=== PATIENT | female | born 1930 | race Hispanic/Latino ===

== ENCOUNTER 2018-02-28 05:01 | Inpatient (IN) | payer MEDICARE ==
[~2018-02-28] VITALS: Ht 160 cm; Wt 81.7 kg
--- OUTSIDE RECORDS SUMMARY | 2018-02-28 05:03 | XMS REPORT ---
Author Author [facility] Address Unknown Phone Unavailable Care Team Providers Care [employer] Name Role Phone TYRA NEAL Unavailable Unavailable RAKAN HOROWITZ Unavailable Unavailable Problems This patient has no known problems. Allergies, Adverse Reactions, Alerts This patient has no known allergies or adverse reactions. Medications This patient has no known medications. Results Test Description Test Time Test Comments Text Results Atomic Results Result Comments BONE and/or JOINT WHOLE BODY [place] [address] Patient Name: JOSE F STRONG MR #: [id number] : 1930 Age/Sex: 87/F Req #: [id number] [facility] Physician: Ordered by: TYRA NEAL MD Report #: [id number] Location: [place] Room/Bed: Procedure: [id number] NM/BONE and/or JOINT WHOLE BODY Exam Date: 10/23/17 Exam Time: 1130 REPORT STATUS: Signed Bone Scan, delayed phase INDICATION: 87 F with intermittent mid back pain. Recent Diagnosis of renal cell carcinoma. She has sustained multiple falls. 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 COMPARISON: CT abdomen and pelvis 10/01/2017; MRI spine 09/11/2017 REPORT: Following intravenous administration of 20 mCi of Tc-99m MDP, dynamic flow and immediate blood pool images of the lower thoracic and lumbar spine and 3-hour delayed total body images in the anterior and posterior projections and selected spot images were obtained. Dynamic flow and immediate blood pool images of the lower thoracic and lumbar spine are unremarkable. Right knee and left hip prostheses are noted and show no adjacent tracer accumulation of concern. Small foci of increased tracer activity are seen in the left glenoid, L3 and the inferior aspect of the right SI joint. Very mildly increased tracer is seen at T11. Mildly increased tracer is seen bilaterally in L5/S1 in a pattern typical of degenerative change. Otherwise, distribution of tracer activity is unremarkable throughout the skeletal system. No abnormal accumulation of tracer is seen in the soft tissues or urinary tract. IMPRESSION: 1. Osteoblastic lesions in the left glenoid, L3 and right SI joint inferiorly are nonspecific in appearance and may represent metastases versus degenerative changes. The lesion in the left glenoid is most worrisome for bone metastasis and correlative imaging is warranted. The lesions in L3 and the right SI joint don't have definite CT correlates. 2. Mild osteoblastic process in T11 consistent with known chronic compression fracture. Degenerative change is noted in L5/S1 bilaterally and corresponds to degenerative change seen on CT 10/01/2017. Signed by: Dr. Leeanne Lang M.D. on 10/23/2017 7:05 PM Dictated By: LEEANNE LANG MD 04 Transcribed By: WES on 10/23/171904 COPY TO: TYRA NEAL MD CT ABDOMEN W [place] [address] Patient Name: JOSE F STRONG MR #: [id number] : 1930 Age/Sex: 87/F Req #: [id number] Adm Physician: Ordered by: RAKAN HOROWITZ MD Report #: [id number] Location: CT Room/Bed: Procedure: [id number] CT/CT ABDOMEN W Exam Date: 10/01/17 Exam Time: 1730 REPORT STATUS: Signed EXAM: CT Abdomen and Pelvis WITH contrast INDICATION: EXAM: CT Abdomen WITH contrast INDICATION: Left kidney mass partially visualized on the recent MRI of lumbar spine dated 09/11/17. COMPARISON: None. TECHNIQUE: Abdomen and pelvis were scanned utilizing a multidetector helical scanner from the lung base to the iliac crests after administration of IV contrast. Coronal and sagittal reformations were obtained. Routine protocol was performed. Scan was performed when during portal venous phase. IV CONTRAST: 100 mL of Omnipaque Isovue-370 ORAL CONTRAST: Water RADIATION DOSE: Total DLP: 373.87 mGy*cm Estimated effective dose: (DLP x 0.015 x size factor) mSv COMPLICATIONS: None FINDINGS: LINES and TUBES: None. LOWER THORAX: Right middle lobe and lingular linear atelectasis. Mild calcifications of aortic and mitral annulus. HEPATOBILIARY: 1.1 cm rounded low-attenuation lesion in the lateral aspect of the right hepatic lobe on image 28 series 2 suggestive of a cyst. No biliary ductal dilation. GALLBLADDER: Status post cholecystectomy. Bilateral cortical scarring. Heterogeneous lesion partially exophytic of the upper pole of the left kidney anteriorly measures 4.1 x 3.4 x 4.6 cm in sagittal, AP and transverse dimensions, consistent with a renal cell carcinoma to proven otherwise. SPLEEN: No splenomegaly. PANCREAS: No focal masses or ductal dilatation. ADRENALS: No adrenal nodules KIDNEYS/URETERS : Kidneys enhance symmetrically. No hydronephrosis. No cystic or solid mass lesions. No stones. GI TRACT: No abnormal distention, wall thickening, or evidence of bowel obstruction. Appendix is not visualized. LYMPH NODES: No lymphadenopathy. VESSELS: Atherosclerotic calcifications of the aorta and iliac arteries without aneurysmal dilatation. PERITONEUM / RETROPERITONEUM: No free air or fluid. BONES: Generalized osteopenia. Mild compression deformity of T11. Mild loss of height of the L1 vertebral body. SOFT TISSUES: Unremarkable. IMPRESSION: 1. 4.6 cm mass in the upper pole of the left kidney consistent with renal cell carcinoma. No evidence of metastatic disease within the abdomen and pelvis. Recommend urology consultation. Signed by: Dr. Mark Tanner M.D. on 2016 6:43 PM Dictated By: RAINA TANNER MD, MD 42 Transcribed By: WES on 10/01/171842 COPY TO: RAKAN HOROWITZ MD SP LUMBAR, COMPLETE MIN 4VW [facility] [address] [place] [address] Patient Name: JOSE F STRONG MR #: [id number] : 1930 Age/Sex: 87/F Req #: [id number] Adm Physician: Ordered by: RAKAN HOROWITZ MD Report #: [id number] Location: MRI Room/Bed: Procedure: [id number] DX/SP LUMBAR, COMPLETE MIN 4VW Exam Date: 09/11/17 Exam Time: 1145 REPORT STATUS: Signed PROCEDURE: L -SPINE COMPLETE 5 views including bilateral obliques. COMPARISON: None. INDICATIONS: BACK PAIN FINDINGS: The lumbar spine is in anatomic alignment without evidence of fracture, spondylolisthesis, or spondylolysis. Vertebral body heights and disc spaces are maintained. Moderate facet arthrosis with severe at L4-L5 and L5-S1. The paraspinal soft tissues are normal. Age-indeterminate compression deformity of T11 vertebral body with roughly 50% height loss. Significant atherosclerotic calcifications in the aorta. Left total hip arthroplasty. Right upper quadrant cholecystectomy clips. CONCLUSION: 1. Mild to moderate degenerative changes in the lumbar spine, predominantly involving the facet joints. 2. Age indeterminate T11 vertebral body compression deformity. Dictated by: Gaby Junior M.D. on 09/11/2017 at 12:41 Electronically approved by: Gaby Junior M.D. on 09/11/2017 at 12:41 Dictated By: GABY JUNIOR MD 1241 Transcribed By: DAPHNE on 09/11/17 1241 COPY TO: RAKAN HOROWITZ MD MRI SPINE LUMBAR WO [place] [address] Patient Name: JOSE F STRONG MR #: [id number] : 1930 Age/Sex: 87/F Req #: [id number] Adm Physician: Ordered by: RAKAN HOROWITZ MD Report #: [id number] Location: MRI Room/Bed: Procedure: [id number] MRI/MRI SPINE LUMBAR WO Exam Date: 09/11/17 Exam Time: 1110 REPORT STATUS: Signed EXAMINATION: MRI of the lumbar spine without contrast HISTORY: Low back pain, radiculopathy with lower extremity numbness and weakness COMPARISON: None. TECHNIQUE: Sagittal T1, T2, STIR; axial T2 and proton density. Image quality: Motion artifact limits evaluation of some of the sequences. FINDINGS: It is assumed that there are 5 lumbar vertebrae. Curvature/Alignment: Normal lordosis. Vertebrae: No evidence of recent fracture, infection, or neoplasm. Mild kyphotic malalignment in thoracolumbar region due to chronic mild anterior wedging of the T11 vertebral body (decreased vertebral body height by approximately 25%), no posterior retropulsion or canal stenosis. Conus: Normal, terminating at L1-L2 Cauda equina: Unremarkable. Lower thoracic: Small 3 mm AP diameter left subarticular superior migrated disc protrusion at T12-L1 without stenosis or compression Paraspinal soft tissues: Prominent paraspinal lumbosacral musculature atrophy. Partially visualized approximately 4.5 cm heterogeneous signal intensity mass in the upper pole of the left kidney. Baseline irregular bilateral kidneys which may be related to prior inflammatory/infection process. Partially visualized nonspecific T2 hyperintense lesion in the right liver. Degenerative changes : L1-L2: Symmetric disc bulge and facet arthrosis. Mild foraminal stenosis. L2-L3: Mild symmetric disc bulge, ligamenta flava thickening and facet arthrosis. Moderate spinal canal stenosis. No significant foraminal stenosis. L3-L4: Bilateral facet arthrosis. Mild left foraminal stenoses L4-L5: Mild asymmetric the left disc bulge (with a small posterior annular fissure), ligamenta flava thickening and facet arthrosis. Moderate spinal canal stenosis. Moderate left and mild right foraminal stenoses L5-S1: Moderate facet arthrosis. Mild symmetric disc bulge. Mild bilateral foraminal narrowing. Sacroiliac joints: Mild degenerative changes bilaterally. IMPRESSION: 1. Partially visualized mass in the upper pole of the left kidney. An abdomen and pelvis CT with contrast is recommended for further evaluation. 2. Moderate degenerative spinal canal stenosis at L2-3 and L4-5. 3. Moderate degenerative foraminal stenosis on the left at L4-L5 and mild on the right at L4-L5 and bilaterally at L5-S1. 4. Mild chronic compression fracture of the T11 vertebral body with mild kyphotic malalignment. No acute lumbar spine fractures. The findings were discussed with the attending physician Dr. Horowitz at the time of this dictation. Signed by: Dr. Marco Drew M.D. on 09/11/2017 1:22 PM Dictated By: MARCO DREW MD 1322 Transcribed By: WES on 09/11/17 1322 COPY TO: RAKAN HOROWITZ MD
[2018-02-28] MEDS ORDERED: ONDANSETRON HCL INJ 2 MG/ML VIAL IV STA (05:14)
[2018-02-28] MEDS ORDERED: MORPHINE SULFATE 2 MG/ML SYR IV STA (05:14)
[2018-02-28] MEDS ORDERED: SODIUM CHLORIDE FLUSH 10 ML SYR INJ PRN (05:15)
[2018-02-28] MEDS ORDERED: NIFEDIPINE ER30 M1 PO (05:20)
[2018-02-28] MEDS ORDERED: DETROL LA4 MG PO (05:20)
[2018-02-28] MEDS ORDERED: LISINOPRIL20 MG PO (05:20)
[2018-02-28] MEDS ORDERED: METOPROLOL SUCC50 MG PO (05:20)
[2018-02-28] MEDS ORDERED: SERTRALINE HCL50 MG PO (05:20)
[2018-02-28] MEDS ORDERED: BENZONATATE100 MG PO (05:20)
[2018-02-28] MEDS ORDERED: OMEPRAZOLE40 MG PO (05:20)
[2018-02-28] MEDS ORDERED: MELOXICAM7.5 MG PO ×2 (05:20)
[2018-02-28 05:31] LABS: CLARITY,URINE CLEAR (CLEAR); COLOR,URINE YELLOW (YELLOW)
[2018-02-28 05:32] LABS: BILIRUBIN,URINE NEGATIVE (NEGATIVE); KETONES,URINE NEGATIVE (NEGATIVE); LEUKOCYTE ESTERASE ,URINE NEGATIVE (NEGATIVE); NITRITE,URINE NEGATIVE (NEGATIVE); PROTEIN,URINE DIPSTICK NEGATIVE (NEGATIVE); URINE UROBILINOGEN 0.2 mg/dL (0.2 - 1)
[2018-02-28] MEDS ORDERED: HYDROCODONE/APAP 5MG-325MG TAB PO ONE (05:45)
[2018-02-28 05:50] LABS: RBC,URINE 0-5 /HPF (0-5); WBC,URINE (MAN) 0-5 /HPF (0-5)
[2018-02-28] MEDS ORDERED: DILTIAZEM HCL 5 MG/ML 5 ML VIAL IV SCH (07:00)
--- NOTE | 2018-02-28 07:00 | Diagnostic Imaging Report ---
EXAM: SHOULDER LEFT COMPLETE, AP, axial and scapular y-view INDICATION: Left shoulder pain after fall COMPARISON: None FINDINGS: BONES: Chronic deformity of the proximal left humerus and humeral head. JOINTS: Chronic deformity of the glenohumeral joint SOFT TISSUES: Normal IMPRESSION: Chronic deformity of the proximal left humerus and glenohumeral joint, which appears fused. Signed by: Dr. Luisa Borrego M.D. on 02/28/2018 6:56 AM
--- NOTE | 2018-02-28 07:00 | Diagnostic Imaging Report ---
EXAM: PELVIS AP 1-2 VIEWS INDICATION: Fall, pain COMPARISON: None FINDINGS: BONES: No acute fractures. JOINTS: Left hip arthroplasty. No evidence of hardware failure. SOFT TISSUES: Normal IMPRESSION: No evidence of an acute pelvic fracture. Signed by: Dr. Luisa Borrego M.D. on 02/28/2018 6:57 AM
--- NOTE | 2018-02-28 07:07 | Diagnostic Imaging Report ---
EXAM: CT CHEST WO INDICATION: Back pain after tripping over RUG, left shoulder pain COMPARISON: CT of the abdomen and pelvis October 01, 2017 TECHNIQUE: Multidetector CT scanning of the chest was performed. Coronal and sagittal multiplanar reformations were obtained. Routine protocol performed. IV Contrast: None CTDIvol has been reviewed. It is below the limits set by the Radiation Protocol Committee (RPC). FINDINGS: LUNGS AND AIRWAYS: The trachea and major bronchi are unremarkable. Very mild septal thickening and groundglass opacities. PLEURA: Small amount of fluid in the left major fissure. No pneumothorax. HEART, MEDIASTINUM, VESSELS: Cardiomegaly and small pericardial effusion. Atherosclerotic changes of the thoracic aorta without aneurysm. The main pulmonary artery is enlarged to 3.8 cm. UPPER ABDOMEN: Lobulated kidneys bilaterally. Relatively stable appearance of the 4.6 cm left renal mass. MUSCULOSKELETAL: No acute fracture. Chronic deformity of the left shoulder. IMPRESSION: No evidence of acute injury to the chest. Cardiomegaly, small pericardial effusion, mild edema and possible pulmonary hypertension. Partially visualized left renal mass as previously described. Signed by: Dr. Luisa Borrego M.D. on 02/28/2018 7:03 AM
[2018-02-28] MEDS ORDERED: DILTIAZEM HCL 5 MG/ML 5 ML VIAL IV ONE (07:30)
--- NOTE | 2018-02-28 07:43 | Diagnostic Imaging Report ---
Exam: Head and cervical spine CT without IV contrast History: Trauma, fall Comparison studies: None Technique: Axial images were obtained from the brain and cervical spine. Coronal and sagittal images reconstructed from the axial data. Intravenous contrast: None Findings: Head CT: Scalp: No abnormalities. Bones: No fractures, blastic or lytic lesions. Extra-axial spaces: No masses. No fluid collections. Brain sulci: Mildly prominent. Ventricles: Mild compensatory dilatation. No hydrocephalus. Parenchyma: Recent (acute to subacute) nonhemorrhagic vascular insult in the right WATERSHED TENDER vascular territory with hypodensity and sulcal effacement in the right inferior occipital lobe (lingual and inferior occipital gyrus) which also involves the medial occipitotemporal/fusiform gyri and right hippocampus. There are age-indeterminate lacunar infarcts in the right thalamocapsular region and in the left wilian. Lacunar infarct in the wilian may be possibly be chronic with associated Wallerian degeneration along the left cortical spinal tract. There is a chronic lacunar infarct in the right thalamus. Scattered and mildly confluent hypodensities in the supratentorial white matter are nonspecific but most compatible with chronic small vessel ischemic changes. Sellar/suprasellar region: No abnormalities. Craniocervical junction: The foramen magnum is patent. No Chiari one malformation. Cervical spine CT: Fractures: No acute fractures. Chronic type II dens fracture. Mild posterior angulation of the chronically fractured dens which is without osseous union to the C2 vertebral body but is chronically fused to the anterior C1 arch. Chronic reactive production at the tip of the dens with obliteration of the normal basion-dental interval. Soft tissues: No gross acute abnormalities. Atlantoaxial articulation: Intact. Alignment: Straightened cervical curvature. No acute subluxations. Cervicomedullary junction: No abnormalities. The foramen magnum is patent. Vertebrae: No infection or neoplasm. Degenerative changes: Degenerated disks with mild loss of disc height and disc calcification from C2 to T1. Mild canal stenosis at C6-C7 due to disc osteophyte complex. Multilevel moderate to severe facet arthrosis worse on the left at C4-C5. Multilevel uncovertebral facet arthrosis result in multilevel foraminal stenosis (mild left at C3-C4 moderate left and mild right at C4-C5 moderate bilaterally at C5-C6 and mild bilaterally at C6-C7). Incidental findings: Atherosclerotic calcifications in the cervical carotid bulbs, carotid siphons and in the intradural vertebral arteries. Intraocular lens replacements related to previous cataract surgery. Small focal gas at the right tracheoesophageal junction of the thoracic inlet probably is a small tracheal diverticulum. IMPRESSION: Head CT: 1. Recent (acute to subacute) nonhemorrhagic vascular insult in the right WATERSHED TENDER territory. 2. Age-indeterminate right right thalamocapsular and pontine lacunar infarcts. 3. No acute hemorrhage or other acute posttraumatic abnormalities. 4. Mild to moderate chronic microvascular ischemic changes. 5. Mild generalized volume loss. Cervical spine CT: 1. No acute cervical spine fractures or subluxations. 2. Chronic type II dens fracture. 3. Degenerative changes as described. 4. Cannot adequately evaluate ligament, spinal cord and or vascular abnormalities on the basis of this examination. Findings discussed with Dr. Christianson at 7:22 AM on 02/28/2018. Signed by: Dr. Myles Bedolla M.D. on 02/28/2018 7:39 AM
[2018-02-28 07:45] LABS: BASOPHILS # (AUTO) 0.1 (0.0-0.1); BASOPHILS % 0.7 % (0.0-1.0); EOSINOPHILS # (AUTO) 0.2 (0.0-0.4); EOSINOPHILS % 1.8 % (0.0-6.0); HEMATOCRIT 33.9 % (34.2-44.1); HEMOGLOBIN 10.2 g/dL (12.0-16.0); LYMPHOCYTES # (AUTO) 2.1 (1.0-3.2); LYMPHOCYTES % 18.4 % (18.0-39.1); MEAN CORPUSCULAR HEMOGLOBIN 22.8 pg (28-32); MEAN CORPUSCULAR HGB CONC 30.1 g/dL (31-35); MEAN CORPUSCULAR VOLUME 75.8 fL (81-99); MONOCYTES # (AUTO) 0.7 (0.2-0.8); MONOCYTES % 5.9 % (4.4-11.3); NEUTROPHILS # (AUTO) 8.2 (2.1-6.9); NEUTROPHILS % 72.8 % (38.7-80.0); PLATELET COUNT 269 x10e3/uL (140-360); RED BLOOD COUNT 4.47 x10e6/uL (3.6-5.1); RED CELL DISTRIBUTION WIDTH 16.3 % (11.7-14.4)
[2018-02-28 08:02] LABS: ALANINE AMINOTRANSFERASE 28 IU/L (0-55); ALBUMIN 3.4 g/dL (3.5-5.0); ALBUMIN/GLOBULIN RATIO 0.9 (0.8-2.0); ALKALINE PHOSPHATASE 129 IU/L (40-150); ANION GAP 10.9 mmol/L (8-16); BLOOD UREA NITROGEN 14 mg/dL (7-26); BUN/CREATININE RATIO 18 (6-25); CALCIUM 10.1 mg/dL (8.4-10.2); CARBON DIOXIDE 23 mmol/L (22-29); CHLORIDE 109 mmol/L (98-107); CREATININE, SERUM 0.79 mg/dL (0.57-1.11); EST GLOMERULAR FILTRATION RATE > 60 ML/MIN (60-); GLUCOSE 115 mg/dL (74-118); POTASSIUM 3.9 mmol/L (3.5-5.1); SODIUM 139 mmol/L (136-145)
[2018-02-28] MEDS ORDERED: METOPROLOL SUCCINATE 50 MG TAB XL PO SCH (08:45)
[2018-02-28] MEDS ORDERED: ONDANSETRON HCL INJ 2 MG/ML VIAL IV PRN (08:45)
[2018-02-28] MEDS ORDERED: ASPIRIN 81 MG CHEW TAB PO ONE (08:45)
[2018-02-28] MEDS ORDERED: ASPIRIN 81 MG CHEW TAB PO SCH (09:00)
[2018-02-28] MEDS: SODIUM CHLORIDE 0.9% 1000ML 1,000 ML IV SCH ×2 (09:18→21:59)
[2018-02-28 10:41] LABS: CHOL/HDL RATIO 3.1 (3.0-3.6)
--- NOTE | 2018-02-28 10:58 | Diagnostic Imaging Report ---
WRIST COMPLETE LEFT, HAND 3+ VIEWS LEFT HISTORY: Pain. Fall COMPARISON: None available. FINDINGS: Bones: Osseous demineralization which limits evaluation for subtle nondisplaced fractures. Cortical step-off of the base of the fourth proximal phalanx without intra-articular extension. Chronic appearing fracture deformity of the fifth phalanx. Osseous alignment is within normal limits. Joints: Mild degenerative changes of the carpal and radiocarpal joints and scattered interphalangeal joints. Soft tissues: The soft tissues appear unremarkable. IMPRESSION: Minimally displaced fracture of the base of the fourth proximal phalanx. Signed by: DR. Geovanni Hester MD on 02/28/2018 10:54 AM
[2018-02-28 11:08] LABS: CREATINE KINASE 66 IU/L (29-168)
[2018-02-28 11:48] VITALS: BP 171/88
[2018-02-28 12:00] VITALS: BP 191/96
[2018-02-28] MEDS ORDERED: BENZONATATE 100 MG CAP PO PRN (12:15)
[2018-02-28] MEDS: HYDROCODONE/APAP 5MG-325MG TAB PO PRN ×3 (12:29→23:04)
[2018-02-28] MEDS: TOLTERODINE TARTRATE 4 MG CAPCR PO SCH (12:37)
[2018-02-28 16:51] VITALS: BP 154/69
--- NOTE | 2018-02-28 16:58 | History and Physical ---
REASON FOR ADMISSION/CHIEF COMPLAINT: Fall. HISTORY OF PRESENT ILLNESS: This is an 87-year-old female with history of hypertension, atrial fibrillation, depression, overactive bladder, who was brought into the ED after found on the ground for an unknown determined period of time. According to the family, the patient was getting up out of her bed and was found on the ground near the door as she was trying to exit the house. We are unsure for how long she was found down. When family was on arrival, patient was alert and speaking to them but no evidence of any slurred speech or facial droop. Patient was then brought into the ED for further evaluation. According to the family, the patient has been a little bit confused and also she is having difficulty looking on the left side of her body. There was no evidence of any weakness when I evaluated her. She does have a fracture in the 4th phalanx of the left hand. Patient was seen and evaluated at bedside with the family at bedside as well. I discussed overall plan of care with them. Currently her vital signs were stable and labs were evaluated. REVIEW OF SYSTEMS PERTINENT POSITIVE: She has had multiple falls over the last 1 week. Of note, fell down today. There are some concerns of underlying confusion. PERTINENT NEGATIVE: Denies chest pain, palpitations, nausea, vomiting, diarrhea, dysuria, hematuria, frequency, urgency, lightheadedness, dizziness, abdominal pain, headache, shortness of breath, or any other complaints. REST OF 14-POINT REVIEW OF SYSTEMS: Have been reviewed with the patient and are negative. ALLERGIES: THERE ARE NO KNOWN DRUG ALLERGIES. HOME MEDICATIONS 1. Tessalon Perles 100 mg every 6 hours as needed for cough. 2. Slovan 5 every 6 hours as needed for pain. 3. Lisinopril 20 mg daily. 4. Metoprolol XL 50 mg daily. 5. Nifedipine XL 30 mg daily. 6. Protonix 40 mg daily. 7. Zoloft 50 mg daily. 8. Detrol LA 1 mg p.o. b.i.d. VITAL SIGNS: Temperature is 96.8, pulse is 85, respiratory rate is 20, blood pressure was , pulse ox 98% on 2 liters nasal cannula. LAB FINDINGS: Sodium 139, potassium 3.9, chloride 109, bicarb 23, anion gap of 10, BUN is 14, creatinine is 0.79, glucose is 115. A1c 5.9. Calcium 10. Total bilirubin 0.4, AST 25, ALT 28. Troponin negative. Albumin 3.4. LDL was 80. White count 11.2, hemoglobin is 10.2, hematocrit is 33.9, MCV 75, platelets of 269. UA was negative. MICROBIOLOGY: None. IMAGING STUDIES: Shoulder x-ray shows chronic deformity of the proximal left humerus and glenohumeral joint which appears to be fused. There is a CT chest and it showed no evidence of acute injury to the chest. There is cardiomegaly, small pericardial effusion, mild edema, possible pulmonary hypertension. CT cervical spine showed no acute cervical spine fracture or subluxation. There is a chronic type II dens fracture. This was discussed by the ER physician with the radiologist, and this is chronic. Family also confirms this as well. CT brain shows recent acute to subacute nonhemorrhagic vascular insult in the right CAP [employer]ER territory. Age-indeterminate right thalamocapsular pontine lacunar infarct. No acute hemorrhage or other acute posttraumatic abnormalities. Mild to moderate chronic microvascular ischemic changes seen. Pelvic x-ray was negative. Wrist x-ray, minimally displaced fracture of the base of the 4th proximal phalanx. Her hand x-ray shows minimally displaced fracture of the base of the 4th proximal phalanx. PHYSICAL EXAMINATION GENERAL: Not in acute distress. Alert, oriented x3, cooperative on exam. HEENT: Head: Normocephalic, atraumatic. Eyes: Pupils equally round and reactive to light bilaterally. Extraocular movements intact bilaterally. Neck was supple with good range of motion. Throat: No evidence of any erythema or exudates in the posterior pharynx. Has poor dentition. PULMONARY: Clear to auscultation bilaterally. No wheezing, no rales, no rhonchi, no crackles appreciated. CARDIOVASCULAR: Positive S1/S2. No murmurs, rubs or gallops appreciated. ABDOMEN: Soft, nondistended, nontender to palpation. Bowel sounds present. MUSCULOSKELETAL: Will defer to Neurology. NEUROLOGICAL: Defer to Neurology. SKIN: Intact. Warm to touch. Good capillary refill. PSYCHIATRIC: Normal affect and mood. EXTREMITIES: No edema. Good range of motion throughout. IMPRESSION 1. Acute cerebrovascular accident. Likely embolic event due to history of atrial fibrillation. 2. Chronic atrial fibrillation. 3. Chronic left humerus fracture. 4. Chronic type II dens fracture. Seen on CT cervical spine. 5. Left 4th phalanx fracture, proximal. 6. Hypertension. PLAN: At this time Neurology has been consulted and a carotid ultrasound has been ordered. Further imaging will be deferred to Neurology as well as treatment. She is currently on aspirin, and we will add a statin for the patient. In relation to her chronic left humerus fracture, it shows to be fused, and also she has a chronic type II dens fracture which seems to be chronic and not acute, and no further workup is needed; but in terms of her left 4th phalanx fracture, we are going to put a splint on. There are also reports of a history of atrial fibrillation and that she was not on blood thinners in the past due to frequent falls and which the family endorses. At this time will conform and hold anticoagulation for now and just give her rate-control medication, metoprolol. We are also going to get PT and OT to evaluate as well as Speech Therapy as per stroke workup. She may need inpatient rehab for further rehabilitation. Neurology is following in relation to her acute stroke. In relation to her blood pressure, our goal is to maintain blood pressure around 160s due to her recent embolic stroke. Prophylaxis, will put her on SCDs for now. In relation to her diet, she can have a regular heart-healthy diet but we will get Speech Therapy anyway to evaluate her to complete the stroke workup. I have discussed this overall plan of care and overall findings with the family at bedside. There were several family members at bedside as well with the nursing staff present throughout the whole entire conversation. Patient's family verbalized understanding and had no further questions. Job#: [id number]
--- NOTE | 2018-02-28 16:59 | Consultation ---
DATE OF CONSULTATION: February 28, 2018 NEUROLOGY CONSULT HISTORY OF PRESENT ILLNESS: Ms. Tse is an 87-year-old right hand dominant woman with a past medical history significant for hypertension, hyperlipidemia, previously diagnosed diabetes mellitus, type 2 (no longer requiring treatment), and atrial fibrillation, not on anticoagulation, who presented to the emergency center at [facility] on February 28, 2018, after a fall. In the research editor hours of February 28, 2018, the patient arose from bed to use the bathroom. Rather than using her walker, which was out of her reach, the patient used a cane. Ms. Tse's gait is unsteady at baseline. She has experienced multiple previous falls. Unfortunately, the cane did not provide the support she needed, and the patient fell. She was later found by one of her daughters who brought her to the emergency center at [facility] for further evaluation. As part of her evaluation in the emergency center, the patient underwent a CT of the brain without contrast, which demonstrated an acute to subacute ischemic infarct in the right LICENSED REACTOR OPERATOR distribution. A neurology consultation was requested for stroke evaluation. In the past few weeks, the patient has not experienced a new or worsening visual field cut or other disturbance, dysarthria, aphasia, facial droop, hemiparesis, hemihypesthesia, impairment of gait or balance, dizziness, or confusion. It should be noted, despite the diagnosis of atrial fibrillation, the patient is not on any anticoagulant medications due to her high risk for fall. The patient does not take antiplatelet medication. Ms. Tse was recently diagnosed as being in "the early stages of dementia". Her daughter reports that the patient requires some assistance with bathing. Due to multiple prior joint replacements, the patient's mobility is limited. The patient is able to use the restroom unassisted. She can dress and groom herself without assistance. Ms. Tse does not have difficulty recognizing family members or close friends. She rarely misplaces items. She rarely repeats herself. The patient has few responsibilities at home due to her decreased mobility. A daughter who lives with her performs the necessary chores in and around the house and runs any errands. Ms. Tse does not drive. Her children report she has not driven in years. The patient's son manages Ms. Tse's finances. REVIEW OF SYSTEMS: The only concern the patient voices at this time is a headache. Otherwise, the 12-point review of systems is negative. 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 PAST SURGICAL HISTORY: Bilateral knee replacements, right hip replacement, bilateral cataract surgeries. PAST HOSPITALIZATIONS: Surgeries and procedures as listed, childbirth times 7, multiple falls. FAMILY HISTORY: The patient's paternal and maternal grandparents are . Their medical histories not known. The patient's father and mother are . Their medical histories are unknown. Ms. Tse has 7 siblings. Only one sibling, a sister, is alive. A brother from coronary artery disease. The second brother from brain cancer. Ms. Tse has 7 children. Multiple other children have high blood pressure, high cholesterol or diabetes mellitus, type2. SOCIAL HISTORY: The patient is . She completed school through the 5th grade. 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 There is no known current or prior tobacco use, alcohol use, or recreational drug use. HOME MEDICATIONS 1. Omeprazole 40 mg by mouth daily. 2. Nifedipine ER 30 mg by mouth daily. 3. Meloxicam 7.5 mg by mouth twice daily as needed for pain. 4. Sertraline 50 mg by mouth daily. 5. Lisinopril 20 mg by mouth daily. 6. Benzonatate 100 mg by mouth every 6 hours as needed for cough. 7. Tolterodine 1 mg by mouth twice daily. 8. Metoprolol ER 50 mg by mouth daily. ALLERGIES: NO KNOWN DRUG ALLERGIES. NO KNOWN FOOD ALLERGIES. NO KNOWN ALLERGY TO LATEX. NO KNOWN ALLERGY TO IODINE OR OTHER CONTRAST MATERIALS. PHYSICAL EXAMINATION VITAL SIGNS: Height 63 inches, weight 185 pounds. BMI 32.8 kg per meter squared, blood pressure 171/88 mmHg, pulse 123 beats per minute, respiratory rate 16 breaths per minute, oxygen saturation 100% on 3 L by nasal cannula. GENERAL: The patient is awake and alert, appears mildly distressed secondary to pain. Overweight. HEENT: Normocephalic and atraumatic. Pupils are surgical. Moist mucous membranes. NECK: A soft cervical collar is in place. The vasculature in the neck cannot be assessed. CARDIOVASCULAR: S1 and S2. Irregular rhythm and tachycardic. No murmurs, rubs or gallops. RESPIRATORY: Clear to auscultation bilaterally. No wheezes, rhonchi or rales. EXTREMITIES: The skin is warm and dry. No clubbing, cyanosis or edema. The posterior tibial and dorsalis pedis pulses are 2+ and symmetric. SKIN: No rashes. Scrapes over the knuckles of the left hand. NEUROLOGIC: Memory/attention: The patient is awake and alert. Oriented to person, place (hospital, county, state), time, (month, season, year), and situation. CRANIAL NERVES: Cranial nerve I: Not tested. CRANIAL NERVES: II, III, IV, and : Pupils are surgical. Extraocular movements intact. No nystagmus CRANIAL NERVE V: Sensation to light touch and pinprick is intact in the bilateral V1-V3 distributions. strength of the temporalis and masseter muscles are within normal limits. CRANIAL NERVE VII: The face is symmetric as were all facial movements. Strength is within normal limits. CRANIAL NERVE VIII: Hearing is diminished to finger rub bilaterally. CRANIAL NERVE IX AND X: The soft palate elevates equally and symmetrically. CRANIAL NERVE XI: Normal strength of the bilateral sternocleidomastoid and trapezius muscles. CRANIAL NERVE XII: The tongue protrudes in the midline and moves symmetrically from side to side. STRENGTH: Bulk is normal. The patient is able to maintain the right arm against gravity for more than 10 seconds. The patient has difficulty raising the left arm secondary to pain in the left shoulder and wrist. Positive drift on the left arm. The legs are maintained against gravity for more than 5 seconds each. Tone is normal. DTRs: Deep tendon reflexes are diminished throughout. Plantar responses are flexor bilaterally. Absent clonus. SENSATION: Intact to light touch and pinprick in both arms and both legs. CEREBELLAR: Fxmton-btfi-jgtfkh maneuvers are impaired in the left arm. Npninv-awjc-fcrjtx and heel-back maneuvers are intact in the right arm and both legs without dysmetria or other impairment. GAIT: Deferred. SPEECH: Spontaneous speech is mildly dysarthric without aphasia. Repetition is intact. INVOLUNTARY MOVEMENTS: None. PRONATOR DRIFT: As per motor exam. LABORATORY DATA: Sodium 139, potassium 3.9, chloride 109, carbon dioxide 23, anion gap 10.9, BUN 14, creatinine 0.79. Estimated GFR greater than 60. BUN to creatinine ratio 18. Glucose 115. Calcium 10.1. Total bilirubin 0.4, AST 25, ALT 28, alkaline phosphatase 129. Total protein 7.2, albumin 3.4. Globulin 3.8. Albumin to globulin ratio 0.9. Troponin I less than 0.001. CBC with differential and platelets showed a white blood cell count of 11.27 with 72.8% neutrophils, 18.4% lymphocytes, 5.9% monocytes, 1.8% eosinophils, and 0.7% basophils. The hemoglobin and hematocrit are 10.2 and 33.9 respectively. Platelet count is 269,000. The urinalysis is unremarkable. DIAGNOSTIC STUDIES: CT of the brain without contrast on February 28, 2018, there is an acute to subacute ischemic infarct in the right LICENSED REACTOR OPERATOR distribution. There are age indeterminate right thalamo-capsular and pontine lacunar infarcts. There is mild generalized atrophy, compatible with age. There are mild to moderate changes compatible with chronic small vessel ischemic disease. EKG on February 28, 2018, atrial fibrillation with RVR at 107 beats per minute. ASSESSMENT AND PLAN: Ms. Tse is an 87-year-old right hand dominant woman with multiple vascular risk factors, including atrial fibrillation, not treated with anticoagulation secondary to an increased fall risk. The patient presented to the emergency center at [facility] status post fall, and was found to have an acute to subacute ischemic stroke in the right LICENSED REACTOR OPERATOR distribution. The patient's neurological examination is significant for left arm drift and impaired cerebellar function in the left arm as well. However, these findings could be due to acute pain in the left shoulder and wrist resulting from the patient's recent fall. Ms. Tse's speech is noted to be mildly dysarthric as well. The patient's laboratory data and diagnostic studies have been reviewed and are documented above. The patient requires a complete stroke evaluation as follows: 1. Lipid panel and hemoglobin A1c. 2. Echocardiogram. 3. Bilateral carotid artery ultrasound with Dopplers. 4. Ms. Tse has a known history of atrial fibrillation and ideally should be anticoagulated. However, the patient's history of unsteady gait and poor balance, which has resulted in multiple falls makes her a poor candidate for anticoagulation. Therefore, it is recommended the patient takes aspirin 81 mg by mouth daily for stroke prophylaxis. 5. Allow permission hypertension pending the results of the bilateral carotid artery ultrasound with Doppler. 6. The patient has a reported history of hyperlipidemia, but is not taking any cholesterol lowering medication at this time. Followup lipid panel. 7. The patient has a prior history of diabetes mellitus, type 2, but no longer requires treatment. Followup hemoglobin A1c. 8. Speech and physical therapy consults have been ordered. 9. Defer treatment of the remaining medical comorbidities to the primary and other services. Thank you for this consultation. I will continue to follow this patient while she remains in the hospital. Time spent 70 minutes. Job#: [id number] SON MIKE
[2018-02-28 17:07] LABS: CREATINE KINASE 62 IU/L (29-168)
[2018-02-28] MEDS: NYSTATIN 15 GM POWDER UD BTL TOP SCH (18:01)
[2018-02-28] MEDS ORDERED: ACETAMINOPHEN 325 MG TAB PO PRN (19:15)
[2018-02-28 20:11] VITALS: BP 128/61
[2018-02-28] MEDS: METOPROLOL SUCCINATE 50 MG TAB XL PO SCH ×2 (20:28→21:00)
[2018-02-28] MEDS ORDERED: ATORVASTATIN 40 MG TAB PO SCH (21:00)
[2018-03-01] VITALS: BP 131/60
[2018-03-01 04:00] VITALS: BP 185/77
[2018-03-01 04:03] LABS: CREATINE KINASE 45 IU/L (29-168)
[2018-03-01] MEDS: HYDROCODONE/APAP 5MG-325MG TAB PO PRN ×4 (04:13→22:42)
[2018-03-01 07:14] LABS: BASOPHILS # (AUTO) 0.1 (0.0-0.1); BASOPHILS % 1.2 % (0.0-1.0); EOSINOPHILS # (AUTO) 0.3 (0.0-0.4); EOSINOPHILS % 4.3 % (0.0-6.0); HEMOGLOBIN 9.1 g/dL (12.0-16.0); LYMPHOCYTES # (AUTO) 1.8 (1.0-3.2); LYMPHOCYTES % 24.7 % (18.0-39.1); MEAN CORPUSCULAR HEMOGLOBIN 22.9 pg (28-32); MEAN CORPUSCULAR HGB CONC 28.4 g/dL (31-35); MEAN CORPUSCULAR VOLUME 80.4 fL (81-99); MONOCYTES # (AUTO) 0.6 (0.2-0.8); MONOCYTES % 8.1 % (4.4-11.3); NEUTROPHILS # (AUTO) 4.5 (2.1-6.9); NEUTROPHILS % 61.4 % (38.7-80.0); PLATELET COUNT 163 x10e3/uL (140-360); RED BLOOD COUNT 3.98 x10e6/uL (3.6-5.1); RED CELL DISTRIBUTION WIDTH 16.5 % (11.7-14.4)
[2018-03-01 07:39] LABS: ANION GAP 10.1 mmol/L (8-16); BLOOD UREA NITROGEN 11 mg/dL (7-26); BUN/CREATININE RATIO 15 (6-25); CALCIUM 9.8 mg/dL (8.4-10.2); CARBON DIOXIDE 19 mmol/L (22-29); CHLORIDE 109 mmol/L (98-107); CREATININE, SERUM 0.75 mg/dL (0.57-1.11); EST GLOMERULAR FILTRATION RATE > 60 ML/MIN (60-); GLUCOSE 108 mg/dL (74-118); POTASSIUM 4.1 mmol/L (3.5-5.1); SODIUM 134 mmol/L (136-145)
[2018-03-01] MEDS: NYSTATIN 15 GM POWDER UD BTL TOP SCH ×2 (07:52→17:47)
[2018-03-01 08:42] VITALS: BP 140/58
[2018-03-01] MEDS: TOLTERODINE TARTRATE 4 MG CAPCR PO SCH ×2 (10:30→17:47)
[2018-03-01] MEDS: ASPIRIN 81 MG CHEW TAB PO SCH (10:30)
[2018-03-01] MEDS: PANTOPRAZOLE SOD 40 MG TABEC PO SCH (10:30)
[2018-03-01] MEDS: METOPROLOL SUCCINATE 50 MG TAB XL PO SCH (10:30)
[2018-03-01] MEDS: NIFEDIPINE CR 30 MG TAB PO SCH (10:30)
[2018-03-01] MEDS: LISINOPRIL 20 MG TAB PO SCH (10:30)
[2018-03-01] MEDS: SERTRALINE HCL 50 MG TAB PO SCH (10:30)
[2018-03-01 17:27] VITALS: BP 166/72
--- NOTE | 2018-03-01 19:32 | Consultation ---
DATE OF CONSULTATION: March 01, 2018 CARDIOLOGY CONSULTATION REQUESTING PHYSICIAN: Dr. Vadim Horowitz. REASON FOR CONSULTATION: Atrial fibrillation. HISTORY OF PRESENT ILLNESS: This is an 87-year-old woman with history of hypertension, hyperlipidemia, previously diagnosed diabetes mellitus not on medication, who presented to the ER after a fall. Per the family, patient had gotten up early this morning to go to the bathroom when she lost her balance and fell. The patient denied any chest pain, shortness of breath, lightheadedness, palpitations or loss of consciousness. The patient was able to call her son, who came to the house and found her on the ground. They subsequently called EMS, who brought her to the ER for evaluation. While in the ER, a CT of the brain was obtained which demonstrated an acute to subacute nonhemorrhagic vascular insult in the right BIODIESEL PRODUCTION TECHNICIAN territory with acute indeterminate right thalamocapsular and pontine lacunar infarcts. EKG revealed atrial fibrillation with rapid ventricular response, and the patient was admitted for further evaluation. History is not quite clear. EMR indicates the patient has a known history of atrial fibrillation, but on questioning the daughter who was at bedside and the patient, they deny prior anticoagulation. They do endorse multiple prior falls for the patient. REVIEW OF SYSTEMS: Negative except as per HPI. PAST MEDICAL HISTORY 1. Hypertension. 2. Hyperlipidemia. 3. Diabetes mellitus type 2, not on medication. 4. Probably early Alzheimer's disease. PAST SURGICAL HISTORY 1. Right knee surgery. 2. Right hip replacement. 3. Bilateral cataract surgery. ALLERGIES: PLEASE SEE EMR. MEDICATIONS: Please see medication list. SOCIAL HISTORY: Denies tobacco, alcohol or illicit drugs. FAMILY HISTORY: Noncontributory. PHYSICAL EXAMINATION VITAL SIGNS: Temperature 97.7 degrees, pulse 67, respiratory rate 20, blood pressure 166/72, oxygen saturation 93% on 2 liters nasal cannula. GENERAL: An elderly woman, awake and alert, well developed, well nourished, in no acute distress. HEENT: Normocephalic, atraumatic. No scleral icterus. There is conjunctival pallor. Pupils equal. NECK: Supple. No thyromegaly or cervical lymphadenopathy, no carotid bruits. LUNGS: Clear to auscultation bilaterally. No wheezes or crackles. CARDIOVASCULAR: Normal rate, irregularly irregular. Normal S1 and S2. ABDOMEN: Soft, nontender. EXTREMITIES: No edema. NEURO: Cranial nerves 2-12 appear intact. LABS: WBC 7.4, hemoglobin 9.1, hematocrit 32, platelets 163. Sodium 134, potassium 4.1, chloride 109, CO2 19, BUN 11, creatinine 0.75. UA negative. CT chest: No evidence of acute injury to the chest. Cardiomegaly. Small pericardial effusion. Mild edema and possible pulmonary hypertension. Partially visualized left renal mass. Carotid Doppler: Mild atherosclerotic plaque is visualized and bilateral carotid bruits internal carotid arteries and right external carotid artery. No hemodynamically significant stenosis noted in the carotid system bilaterally. Vertebral artery demonstrates antegrade flow bilaterally. Echocardiogram: Demonstrates normal LV size with mild concentric LVH. Overall left ventricular systolic function is normal with EF between 55% and 60%. RVSP is 59 mmHg assuming RA pressure of 15 mmHg. IMPRESSION 1. 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 2. Atrial fibrillation, currently rate controlled. 3. Frequent falls. 4. Elevated right ventricular systolic pressure by echocardiogram. 5. Hypertension. 6. Chronic type II dens fracture. 7. Chronic left humerus fracture. 8. Left 4th phalanx fracture. RECOMMENDATIONS: Monitor patient on telemetry. Given patient's frequent falls, the patient is not a good candidate for anticoagulation although she does have indication for CVA prophylaxis with anticoagulation due to her high CHADS-VASc score. Unfortunately, at this time the risks appear to outweigh the benefits. Agree with aspirin, permissive blood pressure given acute CVA per Neurology. Lipid panel demonstrates LDL of 80 with total cholesterol 135, triglycerides 59 and HDL 43. Recommend rate control with metoprolol succinate. Continue statin. Thank you for this consult. We will continue to follow. Job#: [id number] EV
[2018-03-01 20:00] VITALS: BP 154/66
[2018-03-01] MEDS: ATORVASTATIN 40 MG TAB PO SCH (21:36)
[2018-03-02] VITALS (9 sets, daily range): BP systolic 150–178; BP diastolic 67–82
[2018-03-02] MEDS: ASPIRIN 81 MG CHEW TAB PO SCH (09:40)
[2018-03-02] MEDS: PANTOPRAZOLE SOD 40 MG TABEC PO SCH (09:41)
[2018-03-02] MEDS: LISINOPRIL 20 MG TAB PO SCH (09:41)
[2018-03-02] MEDS: SERTRALINE HCL 50 MG TAB PO SCH ×2 (09:41→09:53)
[2018-03-02] MEDS: NIFEDIPINE CR 30 MG TAB PO SCH (09:41)
[2018-03-02] MEDS: METOPROLOL SUCCINATE 50 MG TAB XL PO SCH (09:41)
[2018-03-02] MEDS: TOLTERODINE TARTRATE 4 MG CAPCR PO SCH ×2 (09:42→10:06)
[2018-03-02] MEDS: NYSTATIN 15 GM POWDER UD BTL TOP SCH ×2 (09:42→16:21)
[2018-03-02] MEDS ORDERED: BISACODYL 10 MG SUPP PR PRN (13:30)
[2018-03-02] MEDS: ACETAMINOPHEN 325 MG TAB PO PRN (13:58)
[2018-03-02 15:19] LABS: BASOPHILS # (AUTO) 0.1 (0.0-0.1); BASOPHILS % 0.6 % (0.0-1.0); EOSINOPHILS # (AUTO) 0.3 (0.0-0.4); EOSINOPHILS % 2.5 % (0.0-6.0); HEMATOCRIT 32.1 % (34.2-44.1); HEMOGLOBIN 9.7 g/dL (12.0-16.0); LYMPHOCYTES % 18.3 % (18.0-39.1); MEAN CORPUSCULAR HGB CONC 30.2 g/dL (31-35); MEAN CORPUSCULAR VOLUME 76.2 fL (81-99); MONOCYTES # (AUTO) 0.8 (0.2-0.8); MONOCYTES % 7.2 % (4.4-11.3); NEUTROPHILS # (AUTO) 7.8 (2.1-6.9); NEUTROPHILS % 71.2 % (38.7-80.0); PLATELET COUNT 235 x10e3/uL (140-360); RED BLOOD COUNT 4.21 x10e6/uL (3.6-5.1); RED CELL DISTRIBUTION WIDTH 16.1 % (11.7-14.4)
[2018-03-02 15:35] LABS: ANION GAP 9.9 mmol/L (8-16); BLOOD UREA NITROGEN 8 mg/dL (7-26); BUN/CREATININE RATIO 11 (6-25); CALCIUM 10.2 mg/dL (8.4-10.2); CARBON DIOXIDE 24 mmol/L (22-29); CHLORIDE 104 mmol/L (98-107); CREATININE, SERUM 0.73 mg/dL (0.57-1.11); EST GLOMERULAR FILTRATION RATE > 60 ML/MIN (60-); GLUCOSE 109 mg/dL (74-118); POTASSIUM 3.9 mmol/L (3.5-5.1); SODIUM 134 mmol/L (136-145)
[2018-03-02] MEDS: LORAZEPAM 0.5 MG TAB PO PRN (17:50)
[2018-03-02] MEDS: TOLTERODINE TARTRATE 2 MG TAB PO SCH (19:16)
[2018-03-02] MEDS: ATORVASTATIN 40 MG TAB PO SCH (19:18)
--- NOTE | 2018-03-02 22:39 | Progress Note ---
DATE: March 02, 2018 CARDIOLOGY PROGRESS NOTE SUBJECTIVE: Patient denies chest pain or shortness of breath. OBJECTIVE VITALS: Temperature 100.1 degrees, pulse 66, respiratory rate 16, blood pressure 173/75. Oxygen saturation 99% on 2 L nasal cannula. GENERAL: Elderly woman. No acute distress. Awake and alert. LUNGS: Clear to auscultation bilaterally. No wheezes or crackles. CARDIOVASCULAR: Normal rate. Regular rhythm. Normal S1/S2. ABDOMEN: Soft, nontender. EXTREMITIES: No edema. CARDIAC MEDICATIONS 1. Atorvastatin 10 mg p.o. nightly. 2. Nifedipine 30 mg p.o. daily. 3. Metoprolol succinate 50 mg p.o. daily. 4. Lisinopril 20 mg p.o. daily. 5. Aspirin 81 mg p.o. daily. LABS: WBC 10.91, hemoglobin 9.7, hematocrit 32.1, platelets 235,000. Sodium 134, potassium 3.9, chloride 104, CO2 24, BUN 8, creatinine 0.73. TELEMETRY: Normal sinus rhythm. IMPRESSIONS 1. 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 2. Atrial fibrillation. 3. Frequent falls. 4. Elevated right ventricular systolic pressure by echocardiogram. 5. Hypertension. 6. Chronic type-2 dens fracture. 7. Chronic left humerus fracture. 8. Left 4th phalanx fracture. RECOMMENDATIONS: Continue monitoring patient on telemetry. Discussed risks and benefits of anticoagulation with patient and several of her daughters today. Patient CHADS-VASc score is 6, which warrants anticoagulation; however, given her frequent falls, the risks likely outweighs the benefits. However, none of the daughters I spoke with today live with the patient, so they are unclear as to the exact frequency of the patient's falls. Continue cardiac medications. Permissive hypertension per neurology. Thank you for this consult. We will continue to follow. Job#: [id number] CQ [id number]
[2018-03-03] VITALS: BP 170/68
[2018-03-03 04:00] VITALS: BP 170/72
[2018-03-03] MEDS: ASPIRIN 81 MG CHEW TAB PO SCH (08:10)
[2018-03-03] MEDS: TOLTERODINE TARTRATE 2 MG TAB PO SCH ×2 (08:10→17:00)
[2018-03-03] MEDS: LISINOPRIL 20 MG TAB PO SCH (08:11)
[2018-03-03] MEDS: PANTOPRAZOLE SOD 40 MG TABEC PO SCH (08:11)
[2018-03-03] MEDS: NIFEDIPINE CR 30 MG TAB PO SCH (08:11)
[2018-03-03] MEDS: METOPROLOL SUCCINATE 50 MG TAB XL PO SCH (08:12)
[2018-03-03] MEDS: NYSTATIN 15 GM POWDER UD BTL TOP SCH ×2 (08:13→17:29)
[2018-03-03 08:17] VITALS: BP 183/74
[2018-03-03] MEDS ORDERED: FLUCONAZOLE 100 MG TAB PO ONE (08:50)
[2018-03-03 12:44] VITALS: BP 164/72
[2018-03-03] MEDS: LORAZEPAM 0.5 MG TAB PO PRN (13:11)
--- NOTE | 2018-03-03 16:33 | Progress Note ---
DATE: March 03, 2018 CARDIOLOGY PROGRESS NOTE SUBJECTIVE: Patient denies chest pain or shortness of breath. OBJECTIVE VITALS: Temperature 99.1 degrees, pulse 69, respiratory rate 20, blood pressure 164/72. Oxygen saturation 99% on 2 L nasal cannula. GENERAL: Elderly woman, awake and alert, in no acute distress. LUNGS: Clear to auscultation bilaterally. No wheezes or crackles. CARDIOVASCULAR: Normal rate. Regular rhythm. Normal S1, S2. ABDOMEN: Soft, nontender. EXTREMITIES: No edema. CARDIAC MEDICATIONS 1. Metoprolol succinate 50 mg p.o. daily. 2. Nifedipine 30 mg p.o. daily. 3. Lisinopril 20 mg p.o. daily. 4. Aspirin 81 mg p.o. daily. 5. Atorvastatin 10 mg p.o. nightly. LABS: None today. TELEMETRY: Normal sinus rhythm. IMPRESSION 1. 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 2. Paroxysmal atrial fibrillation, currently sinus rhythm. 3. Frequent falls. 4. Elevated right ventricular systolic pressure by echocardiogram. 5. Hypertension. 6. Chronic type-2 dens fracture. 7. Chronic left humerus fracture. 8. Left 4th phalanx fracture. RECOMMENDATIONS: Monitor the patient on telemetry. Discussed the patient with her primary physician, Dr. Horowitz. The patient is a high fall risk. The risks of anticoagulation outweigh the benefits at this time, even though her CHADS-VASc score is 6. Agree with continuation of aspirin alone. Continue current cardiac medications otherwise. Thank you for this consult. We will continue to follow. Job#: [id number]
[2018-03-03 16:40] VITALS: BP 155/67
[2018-03-03] MEDS: ALPRAZOLAM 0.25 MG TAB PO PRN ×2 (18:19→22:13)
[2018-03-03] MEDS: ACETAMINOPHEN 325 MG TAB PO PRN (20:39)
[2018-03-03] MEDS: ATORVASTATIN 10 MG TAB PO SCH (20:39)
[2018-03-03 20:40] VITALS: BP 182/73
[2018-03-04] VITALS (7 sets, daily range): BP systolic 155–188; BP diastolic 65–74
[2018-03-04] MEDS: LISINOPRIL 20 MG TAB PO SCH (05:20)
[2018-03-04] MEDS: ASPIRIN 81 MG CHEW TAB PO SCH (09:34)
[2018-03-04] MEDS: TOLTERODINE TARTRATE 2 MG TAB PO SCH ×2 (09:34→16:17)
[2018-03-04] MEDS: NIFEDIPINE CR 30 MG TAB PO SCH (09:35)
[2018-03-04] MEDS: PANTOPRAZOLE SOD 40 MG TABEC PO SCH (09:35)
[2018-03-04] MEDS: SERTRALINE HCL 50 MG TAB PO SCH (09:36)
[2018-03-04] MEDS: NYSTATIN 15 GM POWDER UD BTL TOP SCH ×2 (09:36→16:18)
[2018-03-04] MEDS: METOPROLOL SUCCINATE 50 MG TAB XL PO SCH (09:36)
[2018-03-04] MEDS: ACETAMINOPHEN 325 MG TAB PO PRN (13:19)
[2018-03-04] MEDS: HYDROCODONE/APAP 5MG-325MG TAB PO PRN (13:19)
--- NOTE | 2018-03-04 13:22 | Consultation ---
DATE OF CONSULTATION: REHAB CONSULTATION REFERRING PHYSICIAN: Dr. Vadim Horowitz. I would like to thank Dr. Horowitz for asking me to see Ms. Tse in consultation. REASON FOR CONSULTATION 1. Status post right AP PROCESSOR CVA with impaired functional ability. 2. Patient with hypertension. 3. History of AFib, not on anticoagulation due to high risk for falls. 4. Probable early dementia. HISTORY: Mainly from medical records and chart and from the patient's family. Pzsiyf-lzhxq-[id number]-old Latin female with multiple medical problems including atrial fib for which she is not on anticoagulation due to the fact that she tends to fall. Came into the hospital after being found down at home. Came in and underwent workup and had a CT of the brain which showed an acute to subacute ischemic infarct in the right AP PROCESSOR distribution. Neurology consult was obtained. Patient seems to have some sort of visual issues, but this was premorbid and not just with this most recent stroke. Patient is here and started in therapy but has been very limited thus far. I am being asked to evaluate for rehab needs. PAST MEDICAL HISTORY: Hypertension, hyperlipidemia, diabetes, atrial fibrillation, reflux, depression, urinary incontinence, probable early dementia. SURGERIES: Bilateral knee replacements, right hip replacement, bilateral cataract surgery. SOCIAL HISTORY: Lives with her daughter in a two-story home. Bedroom is downstairs. Uses a rollator usually to get around. Is a little bit slow but fairly functional prior to this. FAMILY HISTORY: A brother had coronary artery disease. They are not sure about their parents' prior medical issues. HABITS: Nonsmoker, nondrinker. ALLERGIES: NO KNOWN DRUG ALLERGIES. LABS: White cell count of 10.9, hemoglobin 9.7, hematocrit 32.1, platelets of 235. Sodium is 134, potassium 3.9, BUN 8, creatinine 0.73. Carotid Doppler: Results are pending. Hand x-ray: Showed minimally displaced fracture of the base of the 4th proximal phalanx. Wrist x-ray: Negative. Pelvic x-ray: No evidence of acute pelvic fracture. Head CT: Recent nonhemorrhagic vascular insult to the right AP PROCESSOR territory. Cervical spine CT: No acute cervical spine fractures. Chronic type II dens fracture. Degenerative changes. Chest CT: No evidence of acute injury to the chest. PHYSICAL EXAMINATION GENERAL: Patient is lying in bed. She is a little bit confused. Sleepy but arousable. Family says she did not sleep real well. EYES: It looks almost like she cannot really see that much. They say that ( ) have a few seconds to try to get her vision see clearly. I could not really get her to track with my fingers. Tongue essentially midline. FACIAL: There is a slight asymmetry with a little bit of droop to the left side. NECK: Nontender and no JVD. HEART: Regular. ABDOMEN: Nondistended. EXTREMITIES: She is definitely weaker on the left side compared to the right side. 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 In the lower extremities, hip and knee flexion and extension is 3+/5 to 4-/5 strength and the left lower extremity 2/5 strength. Small toe of the left foot is bruised, which the family says was not ( ). [facility], patient did wear a [place] J Collar when they had her up. Moderate assist with supine to sit transfers, standing was max assist. Pivot transfers are total assist. She does tend to have left-sided perhaps visual versus neglect. IMPRESSION 1. Status post right posterior cerebral artery cerebrovascular accident with left-sided weakness, impaired cognition. 2. Patient with hypertension. 3. Atrial fibrillation. 4. Type II dens fracture. 5. Early Alzheimer's disease. 6. Left small toe bruising. PLAN: X-ray of the left small toe. At this point, I think it would be more appropriate if she went to a skilled unit to build up her strength and endurance. Clearly she cannot handle 3 hours of intense rehab. It would be better for her to get this lower level of care and therapy, build her strength and endurance, and then when she plateaus with skilled and if able to, can transition to inpatient rehab with the ultimate goal of going home. Thank you once again for allowing me to participate in the care of this very interesting patient. Job#: [id number] EV
--- NOTE | 2018-03-04 19:02 | Diagnostic Imaging Report ---
PROCEDURE:X-RAY LEFT FOOT, COMPLETE COMPARISON:None. INDICATIONS:RULE OUT FRACTURE FINDINGS: Generalized osteopenia, which limits evaluation of the bony structures. No definite acute, displaced fractures or dislocations. No lytic or blastic lesions. Small inferior calcaneal enthesophyte. Mild degenerative changes in the midfoot joints. No significant soft tissue swelling. CONCLUSION: Generalized osteopenia limits evaluation of bony structures. No definite acute displaced fracture or dislocation. Alireza Adams M.D. Dictated by: Alireza Adams M.D. on 03/04/2018 at 19:03 Electronically approved by: Alireza Adams M.D. on 03/04/2018 at 19:03
--- NOTE | 2018-03-04 22:00 | Progress Note ---
DATE: March 04, 2018 SUBJECTIVE: The patient denies chest pain or shortness of breath. OBJECTIVE VITAL SIGNS: Temperature 97.4 degrees, pulse 70, respiratory rate 21, blood pressure 155/68, oxygen saturation 97% on 2 liters nasal cannula. GENERAL: Elderly woman, awake and alert, in no acute distress. LUNGS: Clear to auscultation bilaterally. No wheezes or crackles. CARDIOVASCULAR: Normal rate. Regular rhythm. Normal S1, S2. ABDOMEN: Soft, nontender. EXTREMITIES: No edema. CARDIAC MEDICATIONS 1. Metoprolol succinate 100 mg p.o. daily. 2. Nifedipine 30 mg p.o. daily. 3. Lisinopril 20 mg p.o. daily. 4. Aspirin 81 mg p.o. daily. 5. Atorvastatin 10 mg p.o. nightly. LABS: None today. TELEMETRY: Normal sinus rhythm. IMPRESSION 1. 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 2. Paroxysmal atrial fibrillation, currently sinus rhythm. 3. Frequent falls. 4. Elevated right ventricular systolic pressure by echocardiogram. 5. Hypertension. 6. Chronic type-2 dens fracture. 7. Chronic left humerus fracture. 8. Left 4th phalanx fracture. RECOMMENDATIONS: Monitor the patient on telemetry. In discussion with the patient's primary care physician and her family, the patient is a high fall risk. The risks of anticoagulation currently outweighs the benefits despite her having a CHADS-VASc score of 6. Continue low-dose aspirin alone. Continue current cardiac medications otherwise. Physical therapy rehabilitation as tolerated. Thank you for this consult. We will continue to follow. Job#: [id number]
[2018-03-04] MEDS: ATORVASTATIN 10 MG TAB PO SCH (22:08)
[2018-03-04] MEDS: ALPRAZOLAM 0.25 MG TAB PO PRN (22:08)
[2018-03-05] VITALS: BP 133/67
[2018-03-05] MEDS: ALPRAZOLAM 0.25 MG TAB PO PRN ×2 (03:33→20:32)
[2018-03-05 04:00] VITALS: BP 157/69
[2018-03-05] MEDS: TOLTERODINE TARTRATE 2 MG TAB PO SCH ×2 (10:26→17:20)
[2018-03-05] MEDS: NIFEDIPINE CR 30 MG TAB PO SCH (10:26)
[2018-03-05] MEDS: PANTOPRAZOLE SOD 40 MG TABEC PO SCH (10:26)
[2018-03-05] MEDS: LISINOPRIL 20 MG TAB PO SCH (10:26)
[2018-03-05] MEDS: ASPIRIN 81 MG CHEW TAB PO SCH (10:26)
[2018-03-05] MEDS: NYSTATIN 15 GM POWDER UD BTL TOP SCH ×2 (10:27→17:20)
[2018-03-05] MEDS: METOPROLOL SUCCINATE 50 MG TAB XL PO SCH (10:27)
[2018-03-05] MEDS: SERTRALINE HCL 50 MG TAB PO SCH (10:27)
[2018-03-05] MEDS ORDERED: ONDANSETRON HCL 4 MG ORAL DISINTEGRATING TAB PO PRN (11:30)
[2018-03-05 12:00] VITALS: BP 187/79
--- NOTE | 2018-03-05 12:51 | Progress Note ---
DATE: March 05, 2018 CARDIOLOGY PROGRESS NOTE SUBJECTIVE: The patient denies chest pain or shortness of breath. OBJECTIVE VITAL SIGNS: Temperature 97.1 degrees, pulse 73, respiratory rate 19, blood pressure 182/75, oxygen saturation 97% on 2 L nasal cannula. GENERAL: Elderly woman, awake and alert, in no acute distress. LUNGS: Clear to auscultation bilaterally. No wheezes or crackles. CARDIOVASCULAR: Normal rate. Regular rhythm. Normal S1, S2. ABDOMEN: Soft, nontender. EXTREMITIES: No edema. CARDIAC MEDICATIONS 1. Metoprolol succinate 100 mg p.o. daily. 2. Nifedipine 30 mg p.o. daily. 3. Lisinopril 20 mg p.o. daily. 4. Aspirin 81 mg p.o. daily. 5. Atorvastatin 10 mg p.o. nightly. LABS: None today. TELEMETRY: Normal sinus rhythm. IMPRESSION 1. 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 2. Paroxysmal atrial fibrillation, currently sinus rhythm. 3. Frequent falls. 4. Elevated right ventricular systolic pressure by echocardiogram. 5. Hypertension. 6. Chronic type-2 dens fracture. 7. Chronic left humerus fracture. 8. Left 4th phalanx fracture. RECOMMENDATIONS: Monitor the patient on telemetry. In discussion with the patient's primary care physician and her family, the patient is a high fall risk. The risks of anticoagulation currently outweigh the benefits despite her having a CHADS-VASc score of 6. Continue low-dose aspirin alone. Continue current cardiac medications otherwise. Physical therapy and rehabilitation as tolerated. Thank you for this consult. We will continue to follow. Job#: [id number]
[2018-03-05] MEDS ORDERED: HYDRALAZINE HCL 20 MG/ML VIAL IV PRN (14:00)
[2018-03-05 16:44] VITALS: BP 189/76
[2018-03-05] MEDS: HYDROCODONE/APAP 5MG-325MG TAB PO PRN (19:40)
[2018-03-05 20:00] VITALS: BP 153/64
[2018-03-05] MEDS: ATORVASTATIN 10 MG TAB PO SCH (20:32)
[2018-03-06] VITALS (7 sets, daily range): BP systolic 135–170; BP diastolic 62–72
[2018-03-06] MEDS: HYDROCODONE/APAP 5MG-325MG TAB PO PRN ×2 (00:45→05:55)
[2018-03-06] MEDS: ASPIRIN 81 MG CHEW TAB PO SCH (10:15)
[2018-03-06] MEDS: TOLTERODINE TARTRATE 2 MG TAB PO SCH ×2 (10:15→16:00)
[2018-03-06] MEDS: LISINOPRIL 20 MG TAB PO SCH ×2 (10:15→12:11)
[2018-03-06] MEDS: NYSTATIN 15 GM POWDER UD BTL TOP SCH ×2 (10:16→16:00)
[2018-03-06] MEDS: PANTOPRAZOLE SOD 40 MG TABEC PO SCH ×2 (10:16→12:11)
[2018-03-06] MEDS: NIFEDIPINE CR 30 MG TAB PO SCH ×2 (10:16→12:11)
[2018-03-06] MEDS: SERTRALINE HCL 50 MG TAB PO SCH ×2 (10:16→12:12)
[2018-03-06] MEDS: METOPROLOL SUCCINATE 50 MG TAB XL PO SCH ×2 (10:16→12:12)
--- NOTE | 2018-03-06 11:05 | Discharge Summary ---
PRIMARY CARE PHYSICIAN: Dr. Vadim Horowitz SWEATBAND SHAPER: Dr. El Vera, Dr. Noemi Ramirez, Dr. Westley Gan. FINAL DIAGNOSES 1. Acute cerebrovascular accident to the right posterior cerebral artery territory. 2. Atrial fibrillation, rate controlled now. 3. Baseline hypertension. 4. Baseline vascular dementia. 5. Chronic anemia. 6. History of renal mass. 7. 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 SUMMARY: Patient is an 87-year-old female who came in with acute CVA. The patient had multiple falls. She has baseline atrial fibrillation. 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 Carotid Doppler does have carotid disease, but no significant stenosis. Echocardiogram showed ejection fraction of 30% to 35%. The patient does have left ventricular hypertrophy and left atrial enlargement. She is 87 years old with chronic multiple baseline medical problems, including renal mass, spinal stenosis, degenerative disk disease with osteoarthritis and vascular dementia worsening prior to her stroke. The patient is stable at this time. Because of her recurrent falls, physical therapy [place], the patient will be on: 1. Aspirin 81 mg daily. 2. Plavix 75 mg daily. The patient is otherwise stable. There is a risk for stroke. She does have chronic anemia. She does have chronic hematuria as well. Will monitor the patient's CBC count. At this time, the patient is stable. She will go to a skilled facility at [facility]. Will continue to monitor the patient closely. The patient will continue with her post stroke care. Job#: [id number] SON
[2018-03-06 13:14] LABS: CLARITY,URINE CLOUDY (CLEAR); COLOR,URINE YELLOW (YELLOW)
[2018-03-06 13:15] LABS: BILIRUBIN,URINE 2+ (NEGATIVE); KETONES,URINE NEGATIVE (NEGATIVE); LEUKOCYTE ESTERASE ,URINE 1+ (NEGATIVE); NITRITE,URINE POSITIVE (NEGATIVE); PROTEIN,URINE DIPSTICK 1+ (NEGATIVE); URINE UROBILINOGEN 1 mg/dL (0.2 - 1)
[2018-03-06 13:35] LABS: AMORPHOUS SEDIMENT,URINE RARE (FEW); BACTERIA,URINE MODERATE /HPF; EPITHELIAL CELLS,URINE FEW /LPF; WBC,URINE (MAN) 21-50 /HPF (0-5)
--- NOTE | 2018-03-06 14:11 | Diagnostic Imaging Report ---
PROCEDURE: A single AP view of the chest. COMPARISON: None. INDICATIONS: ELEVATED WHITE BLOOD COUNT FINDINGS: Lines/tubes: None. Lungs: Lungs are well-inflated. Minimal bibasilar atelectasis. No consolidation Pleura: There is no pleural effusion or pneumothorax. Heart and mediastinum: Enlarged cardiac silhouette with central pulmonary venous congestion. Bones: No acute bony abnormality. IMPRESSION: 1. enlarged cardiac silhouette with central pulmonary venous congestion. Mild bibasal atelectasis. Alireza Adams M.D. Dictated by: Alireza Adams M.D. on 03/06/2018 at 14:11 Electronically approved by: Alireza Adams M.D. on 03/06/2018 at 14:11
--- NOTE | 2018-03-06 14:24 | Progress Note ---
DATE: March 06, 2018 CARDIOLOGY PROGRESS NOTE SUBJECTIVE: The patient is quite somnolent. She does deny chest pain. OBJECTIVE VITAL SIGNS: Temperature 98.5 degrees, pulse 66, respiratory rate 20, blood pressure 144/65, oxygen saturation 94% on nasal cannula. GENERAL: Elderly woman, somnolent, in no acute distress. LUNGS: Clear to auscultation bilaterally. No wheezes or crackles. CARDIOVASCULAR: Normal rate. Regular rhythm. Normal S1, S2. ABDOMEN: Soft, nontender. EXTREMITIES: No edema. CARDIAC MEDICATIONS 1. Metoprolol succinate 100 mg p.o. daily. 2. Nifedipine 30 mg p.o. daily. 3. Lisinopril 20 mg p.o. daily. 4. Aspirin 81 mg p.o. daily. 5. Atorvastatin 10 mg p.o. nightly. LABS: UA with nitrates, 2+ blood, 1+ leukocyte esterase. TELEMETRY: Normal sinus rhythm. IMPRESSION 1. 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 2. Paroxysmal atrial fibrillation, currently sinus rhythm. 3. Frequent falls. 4. Elevated right ventricular systolic pressure by echocardiogram. 5. Hypertension. 6. Chronic type-2 dens fracture. 7. Chronic left humerus fracture. 8. Left 4th phalanx fracture. RECOMMENDATIONS: Monitor the patient on telemetry. In discussion with the patient's primary care physician and her family, the patient is a high fall risk. The risks of anticoagulation currently outweigh the benefits despite her having a CHADS-VASc score of 6. Continue low-dose aspirin. Continue current cardiac medications otherwise. Physical therapy and rehabilitation as tolerated. Given the patient's somnolence, obtain a UA and chest x-ray. Thank you for this consult. We will continue to follow. Job#: [id number]
[2018-03-06] MEDS: ACETAMINOPHEN 325 MG TAB PO PRN (16:00)
== END 2018-03-06 17:18 | DRG 65 ==
LOC: ER 05:01 → ERHOLD 09:58 → MED/SURG 09:59
PROVIDERS: ADMIT Internal Medicine; ATTEND Internal Medicine
DX: I63.431 Cerebral infarction due to embolism of right posterior cerebral artery (principal); E87.1 Hypo-osmolality and hyponatremia; I48.0 Paroxysmal atrial fibrillation; F01.50 Vascular dementia, unspecified severity, without behavioral disturbance, psychotic disturbance, mood disturbance, and anxiety; I10 Essential (primary) hypertension; D64.9 Anemia, unspecified; N28.89 Other specified disorders of kidney and ureter; S62.615A Displaced fracture of proximal phalanx of left ring finger, initial encounter for closed fracture; E78.5 Hyperlipidemia, unspecified; K21.9 Gastro-esophageal reflux disease without esophagitis; F32.9 Major depressive disorder, single episode, unspecified; M51.36 Other intervertebral disc degeneration, lumbar region; M47.816 Spondylosis without myelopathy or radiculopathy, lumbar region; S90.122A Contusion of left lesser toe(s) without damage to nail, initial encounter; W19.XXXA Unspecified fall, initial encounter; Z91.81 History of falling; Y92.239 Unspecified place in hospital as the place of occurrence of the external cause; M85.80 Other specified disorders of bone density and structure, unspecified site; N32.81 Overactive bladder
CPT/HCPCS: 36415; 70450; 71045; 71250; 72125; 72170; 80048; 80053; 80061; 81001; 82550; 82553; 83036; 84484; 85025; 87086; 93005; 93306; 93880; 97139; 99284; J0360; J7030

== ENCOUNTER 2018-03-23 23:39 | Emergency (ER) | payer MEDICARE ==
[~2018-03-23] VITALS: Ht 165.1 cm; Wt 90.7 kg
[~2018-03-23 23:39] MED LIST: BENZONATATE100 MG PO; DETROL LA4 MG PO; LISINOPRIL20 MG PO; MELOXICAM7.5 MG PO; METOPROLOL SUCC50 MG PO; NIFEDIPINE ER30 M1 PO; OMEPRAZOLE40 MG PO; SERTRALINE HCL50 MG PO
[2018-03-24 01:00] LABS: ALANINE AMINOTRANSFERASE 34 IU/L (0-55); ALBUMIN 2.6 g/dL (3.5-5.0); ALKALINE PHOSPHATASE 158 IU/L (40-150); ANION GAP 14.6 mmol/L (8-16); BLOOD UREA NITROGEN 14 mg/dL (7-26); BUN/CREATININE RATIO 20 (6-25); CARBON DIOXIDE 25 mmol/L (22-29); CHLORIDE 101 mmol/L (98-107); EST GLOMERULAR FILTRATION RATE > 60 ML/MIN (60-); GLUCOSE 105 mg/dL (74-118); POTASSIUM 3.6 mmol/L (3.5-5.1); SODIUM 137 mmol/L (136-145)
[2018-03-24 01:14] LABS: BILIRUBIN,DIRECT 0.3 mg/dL (0.0-0.5)
[2018-03-24 01:38] VITALS: BP 182/96
== END 2018-03-24 02:08 ==
LOC: MERGE 23:39 → ER 23:39
CPT/HCPCS: 36415; 80048; 80076; 99284

== ENCOUNTER 2018-03-30 15:41 | Inpatient (IN) | payer MEDICARE ==
[~2018-03-30] VITALS: Ht 160 cm; Wt 79.6 kg
--- OUTSIDE RECORDS SUMMARY | 2018-03-30 15:45 | XMS REPORT | Continuity of Care Document ---
Author Author [facility] Organization [facility] Address [address] [place] [address] Phone Unavailable Care Team Providers Care Adult Day Care Worker Name Role Phone RAKAN KOROMA MD PCP Insurance Providers Guarantor Priyanka Strong Address [address] [place] [address] Email [facility] [employer] Medicare Advantage Policy Number [id number] Subscriber's Name eDe Dee Strong Relationship 18 Self / Same As Patient Effective Date 17 Advance Directives Directive Response Recorded Date/Time Does the patient have an advance directive? No 02/28/18 12:18pm If yes, is advance directive on file with [facility]? No 02/28/18 12:18pm If not on file with [facility] will patient provide a copy? No 02/28/18 12:18pm Do you have a Directive to Physician? No 02/28/18 5:00am Do you have a Medical Power of [place]? No 02/28/18 5:00am Do you have an out of hospital Do Not Resuscitate Order? No 02/28/18 5:00am Do you have any special needs we should be aware of? No 02/28/18 5:00am Do you have a support person here with you today? Yes 02/28/18 5:00am Did patient receive Notice of Privacy Practices? Yes 02/28/18 5:00am Did patient receive patient rights and responsibilities? Yes 02/28/18 5:00am Problems Medical Problem Onset Date Status A-fib Unknown Head injury Unknown Stroke Unknown Medications Current Home Medications Medication Dose Units Route Directions Days Qty Instructions Start Date Benzonatate 100 Mg Capsule 100 Mg Oral Every 6 Hours as needed for Cough Lisinopril (Prinavil / Zestril) 20 Mg Tablet 20 Mg Oral Daily Meloxicam 7.5 Mg Tablet 7.5 Mg Oral Twice A Day as needed for Pain 30 Tab Metoprolol Succinate 50 Mg Tab.er.24h 50 Mg Oral Bedtime Nifedipine (Nifedipine Er) 30 Mg Tab.er.24 30 Mg Oral Daily Omeprazole 40 Mg Capsule.dr 40 Mg Oral Daily Sertraline Hcl 50 Mg Tablet 50 Mg Oral Daily 30 Tab Tolterodine Tartrate (Detrol La) 4 Mg Cap.er.24h 1 Mg Oral Twice A Day 30 Cap Past Home Medications Medication Directions Ordered Status Meloxicam 7.5 Mg Tablet, 7.5 Mg Oral Daily Discontinued Social History Social History Problem Response Recorded Date/Time Onset Date Status Hx Psychiatric Problems No 02/28/2018 12:18pm Not Applicable Not Applicable Hx Eating Disorder No 02/28/2018 12:18pm Not Applicable Not Applicable Hx Substance Use Disorder No 02/28/2018 12:18pm Not Applicable Not Applicable Hx Depression No 02/28/2018 12:18pm Not Applicable Not Applicable Hx Alcohol Use No 02/28/2018 12:18pm Not Applicable Not Applicable Hx Substance Use Treatment No 02/28/2018 12:18pm Not Applicable Not Applicable Hx Physical Abuse No 02/28/2018 12:18pm Not Applicable Not Applicable Hospital Discharge Instructions No hospital discharge instruction information available. Plan of Care Discharge Date 03/06/18 5:18pm Disposition TRANS TO OTHER [facility] F[facility] Prescriptions See Medication Section Functional Status Query Response Date Recorded FUNCTIONAL STATUS ` February 28, 2018 5:27pm Assistive Devices Rolling Walker February 28, 2018 11:48am Ambulation Ability 2 person assist February 28, 2018 11:48am Toileting Ability Total Assistance March 06, 2018 2:18pm Allergies, Adverse Reactions, Alerts Allergen Type Severity Reaction Status Last Updated Morphine Allergy Unknown Active 03/02/18 Immunizations No immunization information available. Vital Signs Acute Vital Signs Vital Response Date/Time Temperature (Fahrenheit) 98.7 degrees F (97.6 - 99.5) 03/06/2018 4:14pm Pulse Pulse Rate (adult) 101 bpm (60 - 90) 03/06/2018 4:14pm Respiratory Rate 20 bpm (12 - 24) 03/06/2018 4:14pm Blood Pressure 170/72 mm Hg 03/06/2018 4:14pm Height 5 ft 3 in 02/28/2018 5:07am Weight 180.13 lb 03/06/2018 8:03am Body Mass Index 31.9 kg/m^2 03/06/2018 8:03am Results Laboratory Results Test Name Result Units Flags Reference Collection Date/Time Result Date/ Time Comments White Blood Count 10.91 x10e3/uL H 4.8-10.8 03/02/2018 3:10pm 2017 3:19pm Red Blood Count 4.21 x10e6/uL 3.6-5.1 03/02/2018 3:10pm 03/02/2018 3: 19pm Hemoglobin 9.7 g/dL L 12.0-16.0 03/02/2018 3:10pm 03/02/2018 3:19pm Hematocrit 32.1 % L 34.2-44.1 03/02/2018 3:10pm 03/02/2018 3:19pm Mean Corpuscular Volume 76.2 fL # L 81-99 03/02/2018 3:1003/02/2018 3: 19pm Mean Corpuscular Hemoglobin 23.0 pg L 28-32 03/02/2018 3:10pm 2017 3:19pm Mean Corpuscular Hemoglobin Concent 30.2 g/dL L 31-35 03/02/2018 3:10pm 03/02/2018 3:19pm Red Cell Distribution Width 16.1 % H 11.7-14.4 03/02/2018 3:10pm 2017 3:19pm Platelet Count 235 x10e3/uL 140-360 03/02/2018 3:1003/02/2018 3: 19pm Neutrophils (%) (Auto) 71.2 % 38.7-80.0 03/02/2018 3:10pm 03/02/2018 3: 19pm Lymphocytes (%) (Auto) 18.3 % 18.0-39.1 03/02/2018 3:10pm 03/02/2018 3: 19pm Monocytes (%) (Auto) 7.2 % 4.4-11.3 03/02/2018 3:10pm 03/02/2018 3: 19pm Eosinophils (%) (Auto) 2.5 % 0.0-6.0 03/02/2018 3:10pm 03/02/2018 3: 19pm Basophils (%) (Auto) 0.6 % 0.0-1.0 03/02/2018 3:10pm 03/02/2018 3:19pm IM GRANULOCYTES % 0.2 % 0.0-1.0 03/02/2018 3:10pm 03/02/2018 3:19pm Neutrophils # (Auto) 7.8 H 2.1-6.9 03/02/2018 3:10pm 03/02/2018 3: 19pm Lymphocytes # (Auto) 2.0 1.0-3.2 03/02/2018 3:10pm 03/02/2018 3:19pm Monocytes # (Auto) 0.8 0.2-0.8 03/02/2018 3:10pm 03/02/2018 3:19pm Eosinophils # (Auto) 0.3 0.0-0.4 03/02/2018 3:10pm 03/02/2018 3:19pm Basophils # (Auto) 0.1 0.0-0.1 03/02/2018 3:10pm 03/02/2018 3:19pm Absolute Immature Granulocyte (auto 0.02 x10e3/uL 0-0.1 03/02/2018 3: 10pm 03/02/2018 3:19pm Urine Color YELLOW YELLOW 03/06/2018 1:07pm 03/06/2018 1:16pm Urine Clarity CLOUDY H CLEAR 03/06/2018 1:07pm 03/06/2018 1:16pm Urine Specific [place] 1.025 1.010-1.025 03/06/2018 1:07pm 2017 1:16pm Urine pH 5 5 - 7 03/06/2018 1:07pm 03/06/2018 1:16pm Urine Leukocyte Esterase 1+ H NEGATIVE 03/06/2018 1:07pm 03/06/2018 1: 16pm Urine Nitrite POSITIVE H NEGATIVE 03/06/2018 1:07pm 03/06/2018 1:16pm Urine Protein 1+ H NEGATIVE 03/06/2018 1:07pm 03/06/2018 1:16pm Urine Glucose (UA) NEGATIVE NEGATIVE 03/06/2018 1:07pm 03/06/2018 1: 16pm Urine Ketones NEGATIVE NEGATIVE 03/06/2018 1:07pm 03/06/2018 1:16pm Urine Urobilinogen 1 mg/dL 0.2 - 1 03/06/2018 1:07pm 03/06/2018 1:16pm Urine Bilirubin 2+ H NEGATIVE 03/06/2018 1:07pm 03/06/2018 1:16pm Urine Blood 2+ H NEGATIVE 03/06/2018 1:07pm 03/06/2018 1:16pm Urine WBC 21-50 /HPF H 0-5 03/06/2018 1:07pm 03/06/2018 1:36pm Urine RBC 11-20 /HPF H 0-5 03/06/2018 1:07pm 03/06/2018 1:36pm Urine Bacteria MODERATE /HPF H NONE 03/06/2018 1:07pm 03/06/2018 1:36pm Urine Epithelial Cells FEW /LPF NONE 03/06/2018 1:07pm 03/06/2018 1: 36pm Urine Amorphous Sediment RARE FEW 03/06/2018 1:07pm 03/06/2018 1: 36pm Urine Coarse Granular Casts 1-5 H 0 03/06/2018 1:07pm 03/06/2018 1: 36pm Sodium Level 134 mmol/L L 136-145 03/02/2018 3:10pm 03/02/2018 3:36pm Potassium Level 3.9 mmol/L 3.5-5.1 03/02/2018 3:10pm 03/02/2018 3:36pm Chloride Level 104 mmol/L 98-107 03/02/2018 3:10pm 03/02/2018 3:36pm Carbon Dioxide Level 24 mmol/L 22-29 03/02/2018 3:10pm 03/02/2018 3: 36pm Anion Gap 9.9 mmol/L 8-16 03/02/2018 3:10pm 03/02/2018 3:36pm Blood Urea Nitrogen 8 mg/dL 7-03/02/2018 3:10pm 03/02/2018 3:36pm Creatinine 0.73 mg/dL 0.57-1.11 03/02/2018 3:10pm 03/02/2018 3:36pm BUN/Creatinine Ratio 11 6-25 03/02/2018 3:10pm 03/02/2018 3:36pm Estimat Glomerular Filtration Rate > 60 ML/MIN 60- 03/02/2018 3:10pm 3:36pm Ranges were taken from the National Kidney Disease Education Program and the National Kid[employer] Foundation literature. Reference ranges: 60 or greater: Normal 16-59 (for 3 consecutive months): Chronic kidney disease 15 or less: Kidney failure Glucose Level 109 mg/dL 74-118 03/02/2018 3:10pm 03/02/2018 3:36pm Calcium Level 10.2 mg/dL 8.4-10.2 03/02/2018 3:10pm 03/02/2018 3:36pm Hemoglobin A1c Percent 5.9 % 4.0-7.0 02/28/2018 7:3002/28/2018 10: 47am Total Bilirubin 0.4 mg/dL 0.2-1.2 02/28/2018 7:3002/28/2018 8:04am Aspartate Amino Transf (AST/SGOT) 25 IU/L 5-34 02/28/2018 7:302017 8:04am Alanine Aminotransferase (ALT/SGPT) 28 IU/L 0-55 02/28/2018 7:30 8:04am Total Protein 7.2 g/dL 6.5-8.1 02/28/2018 7:3002/28/2018 8:04am Albumin 3.4 g/dL L 3.5-5.0 02/28/2018 7:3002/28/2018 8:04am Globulin 3.8 g/dL H 2.3-3.5 02/28/2018 7:3002/28/2018 8:04am Albumin/Globulin Ratio 0.9 0.8-2.0 02/28/2018 7:30am 02/28/2018 8: 04am Alkaline Phosphatase 129 IU/L 40-150 02/28/2018 7:30am 02/28/2018 8: 04am Triglycerides Level 59 MG/DL 0-149 02/28/2018 7:30am 02/28/2018 10: 47am Cholesterol Level 135 MD/DL 0-199 02/28/2018 7:30am 02/28/2018 10:47am Less than 200 mg/dL Low Risk 201 - 239 mg/dL Borderline Risk 240 mg/dl and greater High Risk LDL Cholesterol 80 MG/DL 60-130 02/28/2018 7:30am 02/28/2018 10:47am HDL Cholesterol 43 MG/DL 40-60 02/28/2018 7:30am 02/28/2018 10:47am Cholesterol/HDL Ratio 3.1 3.0-3.6 02/28/2018 7:30am 02/28/2018 10: 47am Creatine Kinase 45 IU/L 29-168 03/01/2018 2:03am 03/01/2018 4:04am Creatine Kinase MB 1.30 ng/mL 0-5.0 03/01/2018 2:03am 03/01/2018 4: 13am Troponin I < 0.001 ng/mL 0-0.300 03/01/2018 2:03am 03/01/2018 4:13am Procedures Procedure Status Date Provider(s) Magnetic resonance imaging of lumbar spine without contrast Active 09/11/17 RAKAN KOROMA MD Computed tomography of abdomen with contrast Active 10/01/17 RAKAN KOROMA MD Computed tomography of brain without radiopaque contrast Active 02/28/18 VALENTINA GARCIA MD Computed tomography of cervical spine without contrast Active 02/28/18 VALENTINA GARCIA MD Computed tomography of chest without contrast Active 02/28/18 VALENTINA GARCIA MD Encounters Encounter Location Arrival/Admit Date Discharge/Depart Date Attending Provider Discharged Inpatient [facility] 02/28/18 9:58am 03/06/18 5:18pm RAKAN KOROMA MD Registered Clinic [facility] 10/23/17 11:08am TYRA NEAL MD Registered Clinic [facility] 10/01/17 4:48pm RAKAN KOROMA MD Registered Clinic [facility] 09/11/17 10:31am RAKAN KOROMA MD
[2018-03-30] MEDS ORDERED: HYDRALAZINE HCL 20 MG/ML VIAL IV NR (16:45)
[2018-03-30] MEDS ORDERED: SODIUM CHLORIDE 0.9% 500ML 500 ML IV ONE (16:45)
[2018-03-30 16:47] LABS: BASOPHILS # (AUTO) 0.1 (0.0-0.1); BASOPHILS % 0.4 % (0.0-1.0); EOSINOPHILS # (AUTO) 0.3 (0.0-0.4); EOSINOPHILS % 2.2 % (0.0-6.0); HEMATOCRIT 33.5 % (34.2-44.1); HEMOGLOBIN 9.9 g/dL (12.0-16.0); LYMPHOCYTES # (AUTO) 1.6 (1.0-3.2); LYMPHOCYTES % 12.1 % (18.0-39.1); MEAN CORPUSCULAR HEMOGLOBIN 22.2 pg (28-32); MEAN CORPUSCULAR HGB CONC 29.6 g/dL (31-35); MEAN CORPUSCULAR VOLUME 75.3 fL (81-99); MONOCYTES # (AUTO) 0.6 (0.2-0.8); MONOCYTES % 4.9 % (4.4-11.3); NEUTROPHILS # (AUTO) 10.6 (2.1-6.9); NEUTROPHILS % 79.9 % (38.7-80.0); PLATELET COUNT 298 x10e3/uL (140-360); RED BLOOD COUNT 4.45 x10e6/uL (3.6-5.1); RED CELL DISTRIBUTION WIDTH 16.3 % (11.7-14.4)
[2018-03-30 16:59] LABS: ALANINE AMINOTRANSFERASE 73 IU/L (0-55); ALBUMIN 2.3 g/dL (3.5-5.0); ALBUMIN/GLOBULIN RATIO 0.4 (0.8-2.0); ALKALINE PHOSPHATASE 208 IU/L (40-150); ANION GAP 12.6 mmol/L (8-16); BLOOD UREA NITROGEN 16 mg/dL (7-26); BUN/CREATININE RATIO 23 (6-25); CALCIUM 11.6 mg/dL (8.4-10.2); CARBON DIOXIDE 26 mmol/L (22-29); CHLORIDE 101 mmol/L (98-107); CREATININE, SERUM 0.69 mg/dL (0.57-1.11); EST GLOMERULAR FILTRATION RATE > 60 ML/MIN (60-); GLUCOSE 118 mg/dL (74-118); POTASSIUM 3.6 mmol/L (3.5-5.1); SODIUM 136 mmol/L (136-145)
[2018-03-30 17:00] LABS: CREATINE KINASE < 7 IU/L (29-168)
--- NOTE | 2018-03-30 17:25 | Diagnostic Imaging Report ---
PROCEDURE: CHEST SINGLE (PORTABLE) COMPARISON: 03/06/18. INDICATIONS: CHEST PAIN. ALTERED MENTAL STATUS FINDINGS: LUNGS: Well-inflated. No mass, infiltrate, or vascular congestion. PLEURA: No effusions or pneumothorax. HEART \T\ MEDIASTINUM: Stable cardiomegaly and aortic ectasia. BONES \T\ SOFT TISSUES: Degenerative changes of the shoulders are stable, left more severe than the right. Soft tissues are unremarkable.. CONCLUSION: Stable cardiomegaly without vascular congestion. No acute pulmonary process. Dictated by: Cassi Zhu M.D. on 03/30/2018 at 17:27 Electronically approved by: Cassi Zhu M.D. on 03/30/2018 at 17:27
[2018-03-30] MEDS ORDERED: MELOXICAM 7.5 MG TAB PO PRN (18:15)
[2018-03-30 18:45] LABS: CHOL/HDL RATIO 4.2 (3.0-3.6)
[2018-03-30] MEDS ORDERED: ASPIRIN 325 MG TAB PO NR (18:45)
[2018-03-30 19:04] LABS: THYROID STIMULATING HORMONE 2.069 uIU/mL (0.350-4.940)
--- OUTSIDE RECORDS SUMMARY | 2018-03-30 19:08 | XMS REPORT ---
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 Allergies, Adverse Reactions, Alerts This patient has no known allergies or adverse reactions. Medications This patient has no known medications. Results Test Description Test Time Test Comments Text Results Atomic Results Result Comments CHEST SINGLE (PORTABLE) [place] [address] Patient Name: CARLA STRONG MR #: [id number] : 1930 Age/Sex: 87/F Req #: [id number] Adm Physician: Ordered by: KATRIN VERMA MD Report #: [id number] Location: ER Room/Bed: Procedure: [id number] DX/CHEST SINGLE (PORTABLE) Exam Date: 03/30/18 Exam Time: 1705 REPORT STATUS: Signed PROCEDURE: CHEST SINGLE (PORTABLE) COMPARISON: 03/06/18. INDICATIONS: CHEST PAIN. ALTERED MENTAL STATUS FINDINGS: LUNGS: Well-inflated. No mass, infiltrate, or vascular congestion. PLEURA: No effusions or pneumothorax. HEART T MEDIASTINUM: Stable cardiomegaly and aortic ectasia. BONES T SOFT TISSUES: Degenerative changes of the shoulders are stable, left more severe than the right. Soft tissues are unremarkable.. CONCLUSION: Stable cardiomegaly without vascular congestion. No acute pulmonary process. Dictated by: Ulices Maya M.D. on 03/30/2018 at 17:27 Electronically approved by: Ulices Maya M.D. on 03/30/2018 at 17:27 Dictated By: ULICES MAYA MD 26 Transcribed By: DAPHNE on 03/30/181726 COPY TO: KATRIN VERMA MD CHEST SINGLE (PORTABLE) [place] [address] Patient Name: CARLA STRONG MR #: [id number] : 1930 Age/Sex: 87/F Req #: [id number] [facility] Physician: RAKAN KOROMA MD Ordered by: NATHANAEL AMIN MD Report #: [id number] Location: MED/SURG Room/Bed: [facility] Procedure: [id number] DX/CHEST SINGLE (PORTABLE) Exam Date: 03/06/18 Exam Time: 1325 REPORT STATUS: Signed PROCEDURE: A single AP view of the chest. COMPARISON: None. INDICATIONS: ELEVATED WHITE BLOOD COUNT FINDINGS: Lines/tubes : None. Lungs: Lungs are well-inflated. Minimal bibasilar atelectasis. No consolidation Pleura: There is no pleural effusion or pneumothorax. Heart and mediastinum: Enlarged cardiac silhouette with central pulmonary venous congestion. Bones: No acute bony abnormality. IMPRESSION: 1. enlarged cardiac silhouette with central pulmonary venous congestion. Mild bibasal atelectasis. Alireza Rhoades M.D. Dictated by: Alireza Rhoades M.D. on 03/06/2018 at 14:11 Electronically approved by: Alireza Rhoades M.D. on 2017 at 14:11 Dictated By: ALIREZA RHOADES MD 1411 Transcribed By: DAPHNE on 141 COPY TO: NATHANAEL AMIN MD FOOT LEFT COMPLETE [place] [address] Patient Name: CARLA STRONG MR #: [id number] : 1930 Age/Sex: 87/F Req # : [id number] Adm Physician: RAKAN KOROMA MD Ordered by: LYNETTE FLOOD DO Report #: [id number] Location: MED/SURG Room/Bed: [facility] _ Procedure: [id number] DX/FOOT LEFT COMPLETE Exam Date: 03/04/18 Exam Time: 1435 REPORT STATUS: Signed PROCEDURE: X- RAY LEFT FOOT, COMPLETE COMPARISON: None. INDICATIONS: RULE OUT FRACTURE FINDINGS: Generalized osteopenia, which limits evaluation of the bony structures. No definite acute, displaced fractures or dislocations. No lytic or blastic lesions. Small inferior calcaneal enthesophyte. Mild degenerative changes in the midfoot joints. No significant soft tissue swelling. CONCLUSION: Generalized osteopenia limits evaluation of bony structures. No definite acute displaced fracture or dislocation. Alireza Rhoades M.D. Dictated by: Alireza Rhoades M.D. on 03/04/2018 at 19:03 Electronically approved by : Alireza Rhoades M.D. on 03/04/2018 at 19:03 Dictated By: ALIREZA RHOADES MD 1903 Transcribed By: DAPHNE on 03/04/181902 COPY TO: LYNETTE FLOOD DO HAND 3+ VIEWS LEFT [place] [address] Patient Name: CARLA STRONG MR #: [id number] : 1930 Age/Sex: 87/F Req # : [id number] Adm Physician: RAKAN KOROMA MD Ordered by: RAKAN BEACH DO Report #: [id number] Location: MED/SURG Room/Bed: [facility] _ Procedure: [id number] DX/HAND 3+ VIEWS LEFT Exam Date: 02/28/18 Exam Time: 1010 REPORT STATUS: Signed WRIST COMPLETE LEFT, HAND 3+ VIEWS LEFT HISTORY: Pain. Fall COMPARISON: None available. FINDINGS: Bones: Osseous demineralization which limits evaluation for subtle nondisplaced fractures. Cortical step-off of the base of the fourth proximal phalanx without intra-articular extension. Chronic appearing fracture deformity of the fifth phalanx. Osseous alignment is within normal limits. Joints: Mild degenerative changes of the carpal and radiocarpal joints and scattered interphalangeal joints. Soft tissues : The soft tissues appear unremarkable. IMPRESSION: Minimally displaced fracture of the base of the fourth proximal phalanx. Signed by: DR. Geovanni Barfield MD on 02/28/2018 10:54 AM Dictated By: GEOVANNI BARFIELD MD 53 Transcribed By : WES on 02/28/181053 COPY TO: RAKAN BEACH DO WRIST COMPLETE LEFT [place] [address] Patient Name: CARLA STRONG MR #: [id number] : 1930 Age/Sex: 87/F Req # : [id number] Adm Physician: RAKAN KOROMA MD Ordered by: RAKAN BEACH DO Report #: [id number] Location: MED/SURG Room/Bed: [facility] _ Procedure: [id number] DX/WRIST COMPLETE LEFT Exam Date: 02/28/18 Exam Time: 1010 REPORT STATUS: Signed WRIST COMPLETE LEFT, HAND 3+ VIEWS LEFT HISTORY: Pain. Fall COMPARISON: None available. FINDINGS: Bones: Osseous demineralization which limits evaluation for subtle nondisplaced fractures. Cortical step-off of the base of the fourth proximal phalanx without intra-articular extension. Chronic appearing fracture deformity of the fifth phalanx. Osseous alignment is within normal limits. Joints: Mild degenerative changes of the carpal and radiocarpal joints and scattered interphalangeal joints. Soft tissues : The soft tissues appear unremarkable. IMPRESSION: Minimally displaced fracture of the base of the fourth proximal phalanx. Signed by: DR. Geovanni Barfield MD on 02/28/2018 10:54 AM Dictated By: GEOVANNI BARFIELD MD 1054 Transcribed By : WES on 02/28/18 1054 COPY TO: RAKAN BEACH DO PELVIS AP 1-2 VIEWS [place] [address] Patient Name: CARLA STRONG MR #: [id number] : 1930 Age/Sex: 87/F Req # : [id number] Adm Physician: Ordered by: VALENTINA GARCIA MD Report #: [id number] Location: ER Room/Bed: Procedure: [id number] DX/PELVIS AP 1-2 VIEWS Exam Date: Exam Time: REPORT STATUS: Signed EXAM: PELVIS AP 1-2 VIEWS INDICATION: Fall, pain COMPARISON: None FINDINGS: BONES: No acute fractures. JOINTS: Left hip arthroplasty. No evidence of hardware failure. SOFT TISSUES: Normal IMPRESSION: No evidence of an acute pelvic fracture. Signed by: Dr. Will Borrego M.D. on 02/28/2018 6:57 AM Dictated By: WILL BORREGO MD 0657 Transcribed By: WES on 02/28/18 0657 COPY TO: VALENTINA GARCIA MD SHOULDER LEFT COMPLETE [place] [address] Patient Name: CARLA STRONG MR #: [id number] : 1930 Age/Sex: 87/F Req #: [id number] Adm Physician: Ordered by: VALENTINA GARCIA MD Report #: [id number] Location: ER Room/Bed: Procedure: [id number] DX/SHOULDER LEFT COMPLETE Exam Date: Exam Time: REPORT STATUS: Signed EXAM: SHOULDER LEFT COMPLETE , AP, axial and scapular y-view INDICATION: Left shoulder pain after fall COMPARISON: None FINDINGS: BONES: Chronic deformity of the proximal left humerus and humeral head. JOINTS: Chronic deformity of the glenohumeral joint SOFT TISSUES: Normal IMPRESSION: Chronic deformity of the proximal left humerus and glenohumeral joint, which appears fused. Signed by: Dr. Will Borrego M.D. on 02/28/2018 6:56 AM Dictated By: WILL BORREGO MD 5 Transcribed By: WES on 02/28/18655 COPY TO: VALENTINA GARCIA MD CT CHEST WO [place] [address] Patient Name: CARLA STRONG MR #: [id number] : 1930 Age/Sex: 87/F Req #: [id number] Adm Physician: Ordered by: VALENTINA GARCIA MD Report #: [id number] Location: ER Room/Bed: Procedure: [id number] CT/CT CHEST WO Exam Date: Exam Time: REPORT STATUS: Signed EXAM: CT CHEST WO INDICATION: Back pain after tripping over RUG, left shoulder pain COMPARISON: CT of the abdomen and pelvis October 01, 2017 TECHNIQUE: Multidetector CT scanning of the chest was performed. Coronal and sagittal multiplanar reformations were obtained. Routine protocol performed. IV Contrast: None CTDIvol has been reviewed. It is below the limits set by the Radiation Protocol Committee (RPC). FINDINGS: LUNGS AND AIRWAYS: The trachea and major bronchi are unremarkable. Very mild septal thickening and groundglass opacities. PLEURA: Small amount of fluid in the left major fissure. No pneumothorax. HEART, MEDIASTINUM, VESSELS: Cardiomegaly and small pericardial effusion. Atherosclerotic changes of the thoracic aorta without aneurysm. The main pulmonary artery is enlarged to 3.8 cm. UPPER ABDOMEN: Lobulated kidneys bilaterally. Relatively stable appearance of the 4.6 cm left renal mass. MUSCULOSKELETAL: No acute fracture. Chronic deformity of the left shoulder. IMPRESSION: No evidence of acute injury to the chest. Cardiomegaly, small pericardial effusion, mild edema and possible pulmonary hypertension. Partially visualized left renal mass as previously described. Signed by: Dr. Will Borrego M.D. on 02/28/2018 7:03 AM Dictated By: WILL BORREGO MD 2 Transcribed By: WES on 02/28/18702 COPY TO: VALENTINA GARCIA MD CT BRAIN WO [place] [address] Patient Name: CARLA STRONG MR #: [id number] : 1930 Age/Sex: 87/F Req #: [id number] Adm Physician: Ordered by: VALENTINA GARCIA MD Report #: [id number] Location: ER Room/Bed: Procedure: [id number] CT/CT BRAIN WO Exam Date: 02/28/18 Exam Time: 0610 REPORT STATUS: Signed Exam: Head and cervical spine CT without IV contrast History: Trauma, fall Comparison studies: None Technique: Axial images were obtained from the brain and cervical spine. Coronal and sagittal images reconstructed from the axial data. Intravenous contrast: None Findings: Head CT: Scalp: No abnormalities. Bones: No fractures, blastic or lytic lesions. Extra-axial spaces: No masses. No fluid collections. Brain sulci: Mildly prominent. Ventricles: Mild compensatory dilatation. No hydrocephalus. Parenchyma: Recent (acute to subacute) nonhemorrhagic vascular insult in the right CANDY DIPPER vascular territory with hypodensity and sulcal effacement in the right inferior occipital lobe ( lingual and inferior occipital gyrus) which also involves the medial occipitotemporal/fusiform gyri and right hippocampus. There are age- indeterminate lacunar infarcts in the right thalamocapsular region and in the left wilian. Lacunar infarct in the wilian may be possibly be chronic with associated Wallerian degeneration along the left cortical spinal tract. There is a chronic lacunar infarct in the right thalamus. Scattered and mildly confluent hypodensities in the supratentorial white matter are nonspecific but most compatible with chronic small vessel ischemic changes. Sellar/ suprasellar region: No abnormalities. Craniocervical junction: The foramen magnum is patent. No Chiari one malformation. Cervical spine CT: Fractures: No acute fractures. Chronic type II dens fracture. Mild posterior angulation of the chronically fractured dens which is without osseous union to the C2 vertebral body but is chronically fused to the anterior C1 arch. Chronic reactive production at the tip of the dens with obliteration of the normal basion-dental interval. Soft tissues: No gross acute abnormalities. Atlantoaxial articulation: Intact. Alignment: Straightened cervical curvature. No acute subluxations. Cervicomedullary junction: No abnormalities. The foramen magnum is patent. Vertebrae: No infection or neoplasm. Degenerative changes: Degenerated disks with mild loss of disc height and disc calcification from C2 to T1. Mild canal stenosis at C6-C7 due to disc osteophyte complex. Multilevel moderate to severe facet arthrosis worse on the left at C4-C5. Multilevel uncovertebral facet arthrosis result in multilevel foraminal stenosis (mild left at C3-C4 moderate left and mild right at C4-C5 moderate bilaterally at C5-C6 and mild bilaterally at C6-C7). Incidental findings: Atherosclerotic calcifications in the cervical carotid bulbs, carotid siphons and in the intradural vertebral arteries. Intraocular lens replacements related to previous cataract surgery. Small focal gas at the right tracheoesophageal junction of the thoracic inlet probably is a small tracheal diverticulum. IMPRESSION: Head CT: 1. Recent (acute to subacute) nonhemorrhagic vascular insult in the right CANDY DIPPER territory. 2. Age-indeterminate right right thalamocapsular and pontine lacunar infarcts. 3. No acute hemorrhage or other acute posttraumatic abnormalities. 4. Mild to moderate chronic microvascular ischemic changes. 5. Mild generalized volume loss. Cervical spine CT: 1. No acute cervical spine fractures or subluxations. 2. Chronic type II dens fracture. 3. Degenerative changes as described. 4. Cannot adequately evaluate ligament, spinal cord and or vascular abnormalities on the basis of this examination. Findings discussed with Dr. Beach at 7:22 AM on 02/28/2018. Signed by: Dr. Allen Hernandez M.D. on 7:39 AM Dictated By: ALLEN HERNANDEZ MD 8 Transcribed By: WES on 02/28/18738 COPY TO: VALENTINA GARCIA MD CT CERVICAL SPINE WO [place] [address] Patient Name: CARLA STRONG MR #: [id number] : 1930 Age/Sex: 87/F Req # : [id number] Adm Physician: Ordered by: VALENTINA GARCIA MD Report #: [id number] Location: ER Room/Bed: Procedure: [id number] CT/CT CERVICAL SPINE WO Exam Date: 02/28/18 Exam Time: 0610 REPORT STATUS: Signed Exam: Head and cervical spine CT without IV contrast History: Trauma, fall Comparison studies: None Technique: Axial images were obtained from the brain and cervical spine. Coronal and sagittal images reconstructed from the axial data. Intravenous contrast: None Findings: Head CT: Scalp: No abnormalities. Bones: No fractures, blastic or lytic lesions. Extra-axial spaces: No masses. No fluid collections. Brain sulci: Mildly prominent. Ventricles : Mild compensatory dilatation. No hydrocephalus. Parenchyma: Recent ( acute to subacute) nonhemorrhagic vascular insult in the right CANDY DIPPER vascular territory with hypodensity and sulcal effacement in the right inferior occipital lobe (lingual and inferior occipital gyrus) which also involves the medial occipitotemporal/fusiform gyri and right hippocampus. There are age- indeterminate lacunar infarcts in the right thalamocapsular region and in the left wilian. Lacunar infarct in the wilian may be possibly be chronic with associated Wallerian degeneration along the left cortical spinal tract. There is a chronic lacunar infarct in the right thalamus. Scattered and mildly confluent hypodensities in the supratentorial white matter are nonspecific but most compatible with chronic small vessel ischemic changes. Sellar/ suprasellar region: No abnormalities. Craniocervical junction: The foramen magnum is patent. No Chiari one malformation. Cervical spine CT: Fractures: No acute fractures. Chronic type II dens fracture. Mild posterior angulation of the chronically fractured dens which is without osseous union to the C2 vertebral body but is chronically fused to the anterior C1 arch. Chronic reactive production at the tip of the dens with obliteration of the normal basion-dental interval. Soft tissues: No gross acute abnormalities. Atlantoaxial articulation: Intact. Alignment: Straightened cervical curvature. No acute subluxations. Cervicomedullary junction: No abnormalities. The foramen magnum is patent. Vertebrae: No infection or neoplasm. Degenerative changes: Degenerated disks with mild loss of disc height and disc calcification from C2 to T1. Mild canal stenosis at C6-C7 due to disc osteophyte complex. Multilevel moderate to severe facet arthrosis worse on the left at C4-C5. Multilevel uncovertebral facet arthrosis result in multilevel foraminal stenosis (mild left at C3-C4 moderate left and mild right at C4-C5 moderate bilaterally at C5-C6 and mild bilaterally at C6-C7). Incidental findings: Atherosclerotic calcifications in the cervical carotid bulbs, carotid siphons and in the intradural vertebral arteries. Intraocular lens replacements related to previous cataract surgery. Small focal gas at the right tracheoesophageal junction of the thoracic inlet probably is a small tracheal diverticulum. IMPRESSION: Head CT: 1. Recent (acute to subacute) nonhemorrhagic vascular insult in the right CANDY DIPPER territory. 2. Age-indeterminate right right thalamocapsular and pontine lacunar infarcts. 3. No acute hemorrhage or other acute posttraumatic abnormalities. 4. Mild to moderate chronic microvascular ischemic changes. 5. Mild generalized volume loss. Cervical spine CT: 1. No acute cervical spine fractures or subluxations. 2. Chronic type II dens fracture. 3. Degenerative changes as described. 4. Cannot adequately evaluate ligament, spinal cord and or vascular abnormalities on the basis of this examination. Findings discussed with Dr. Beach at 7:22 AM on 02/28/2018. Signed by: Dr. Allen Hernandez M.D. on 7:39 AM Dictated By: ALLEN HERNANDEZ MD 8 Transcribed By: WES on 02/28/18738 COPY TO: VALENTINA GARCIA MD BONE and/or JOINT WHOLE BODY [place] [address] Patient Name: JOSE F STRONG MR #: [id number] : 1930 Age/Sex: 87/F Req #: [id number] [facility] Physician: Ordered by: TYRA NEAL MD Report #: [id number] Location: [place] Room/Bed: Procedure: [id number] NM/BONE and/or JOINT WHOLE BODY Exam Date: [...] TO: TYRA NEAL MD CT ABDOMEN W [place] [address] Patient Name: JOSE F STRONG MR #: [id number] : 1930 Age/Sex: 87/F Req #: [id number] Adm Physician: Ordered by: RAKAN KOROMA MD Report #: [id number] Location: CT Room/Bed: Procedure: [id number] CT/CT ABDOMEN W Exam Date: 10/01/17 Exam [...] By: WES on 10/01/171842 COPY TO: RAKAN KOROMA MD SP LUMBAR, COMPLETE MIN 4VW [place] [address] Patient Name: JOSE F STRONG MR #: [id number] : 1930 Age/Sex: 87/F Req #: [id number] Adm Physician: Ordered by: RAKAN KOROMA MD Report #: [id number] Location: MRI Room/Bed: Procedure: [id number] DX/SP LUMBAR, COMPLETE MIN 4VW Exam Date: [...] T11 vertebral body compression deformity. Dictated by: Cesar Junior M.D. on 09/11/2017 at 12:41 Electronically approved by: Cesar Junior M.D. on 09/11/2017 at 12:41 Dictated By: CESAR JUNIOR MD 124 Transcribed By: DAPNHE on 09/11/171240 COPY TO: RAKAN KOROMA MD MRI SPINE LUMBAR WO [facility] [address] [place] [address] Patient Name: JOSE F STRONG MR #: [id number] : 1930 Age/Sex: 87/F Req #: [id number] Adm Physician: Ordered by: RAKAN KOROMA MD Report #: [id number] Location: MRI Room/Bed: Procedure: [id number] MRI/MRI SPINE LUMBAR WO Exam Date: 09/11/17 [...] were discussed with the attending physician Dr. Koroma at the time of this dictation. Signed by: Dr. Melissa Drew M.D. on 09/11/2017 1:22 PM Dictated By: MELISSA DREW MD 21 Transcribed By: WES on 09/11/171321 COPY TO: RAKAN KOROMA MD
--- NOTE | 2018-03-30 19:10 | History and Physical ---
HISTORY OF PRESENT ILLNESS: The patient has been residing the last few weeks at the [facility]. See prior admissions here including stay admitted February 28 with atrial fibrillation and stroke, right posterior cerebral artery territory. History also includes hypertension, baseline vascular dementia, chronic anemia, history of renal mass and history of spinal stenosis with degenerative disk disease of the lumbar spine, chronic congestive heart failure with ejection fraction 35% here in February. LVH. History has included hematuria chronically per prior discharge summary. ALLERGIES: NO KNOWN DRUG ALLERGIES. Patient is not a reliable historian and denies adverse symptoms at this time on review of systems. The patient was referred for chest pain, according to her longterm. The longterm when I was called stated she was not having diaphoresis or nausea or dyspnea. Patient did have a CT of her chest here last month with small effusion, possible pulmonary hypertension. Last admission, she also experienced a fracture of the base of the 4th proximal phalanx. PAST MEDICAL HISTORY: She has a history of chronic left humerus fracture. Chronic type [address] seen on [address] cervical spine last month. Left 4th phalanx fracture as mentioned above. Chronic hypertension. REVIEW OF SYSTEMS: Patient denies adverse symptoms, but then her history is not reliable. PHYSICAL EXAMINATION GENERAL: The patient is awake and conversant and slow to respond. Sensorium is as I have seen it previously. HEENT: Pupils react, equally. grossly intact. Pale. Throat clear, not aspirating. NECK: Flexes. PULMONARY: Auscultation grossly clear. BREASTS: No palpable breast mass. CARDIAC: Sounds S1-2 soft. ABDOMEN: Abdomen is soft and bowel sounds normal. EXTREMITIES: With dampened pulses. No DVT to examination. Calves not tender. Homans' negative. NEUROLOGIC: Patient is oriented to person only now. She has had prior surgery to her eyes. The patient has generalized weakness, more so on the left side. Trace increased DTRs, left. Available data per verbal report noted. Per EMR reviewed. Hemoglobin is depressed at 9.9, white count elevated 13.1, low red cell indices, cardiac enzymes were negative for acute [place]. Elevated B-natriuretic peptide at 196. Albumin 2.3. Globulin 5.3. Recent serum protein electrophoresis was reported not to show gammopathy although the patient has elevated alkaline phos and elevated serum calcium at 11.6. AST high at 72. ALT high at 73. Recent viral studies for hepatitis have been negative and low-dose statin was recently held for similar transaminase changes. Recent ultrasound outpatient abdomen had revealed a left renal abnormality - 3.8 cm lesion;(record indicates she has had this previously). Prior discussion with family indicated she was lost to follow up per her urology consultants. CURRENT IMPRESSION: 1. Chest pain. Initial enzymes and EKG are benign. 2. Atherosclerotic cardiovascular disease with history of intermittent atrial fibrillation and recent stroke last month. Left hemiparesis and reduced sensorium. 3. Advanced stage of 87. 4. Malignant hypertension. 5. Hypercalcemia. P.T.H. 34 (WNL 15-65) March. 03-09-18 Calcium 10.7. 5- Calcium 10.8. 6. Elevated transaminases. Viral Hepatitis A,B, C negative 03-17-18. 7. Left ventricular hypertrophy. 8. Congestive heart failure. 9. History of spinal stenosis and degenerative disk disease with osteoarthritis. 10. History of vascular dementia, worsening prior to her recent stroke. 11. Chronic anemia, as mentioned. 12. Recent lower GI bleed. Rec. GI evaluation also. Anticoagulants held. Patient is not ambulatory. She has been confined to bed and wheelchair. She has not responded significantly to longterm physical therapy. Abdomen CT here September 2017 with 4.6 cm mass upper pole, left kidney, consistent with renal cell carcinoma. Urology consultation was recommended at that time. To follow up enzymes. O2 saturations have been normal at 98%. To address other medical problems while here as able. See also initial and followup orders. See Correction Med List. Job#: [id number] MTDNydia
[2018-03-30] MEDS: HYDRALAZINE HCL 20 MG/ML VIAL IV PRN (20:59)
[2018-03-30] MEDS ORDERED: METOPROLOL SUCCINATE 50 MG TAB XL PO SCH (21:00)
[2018-03-30] MEDS ORDERED: DEXTROSE 5%/0.225% SOD CHL 1,000 ML IV SCH (21:00)
--- NOTE | 2018-03-30 21:52 | Diagnostic Imaging Report ---
BONE SURVEY COMPLETE HISTORY: Renal mass, hypercalcemia COMPARISON: None FINDINGS: Bones: Diffuse demineralization. Subacute fracture of the proximal fourth left phalanx without intra-articular component. Chronic deformity of the proximal left fifth phalanx No displaced fracture. No evidence of lytic or blastic lesions. Osseous alignment is within normal limits. Old posttraumatic deformity of the proximal left humerus at the humeral head and proximal diaphysis. Old posttraumatic deformity of the distal right radial metaphysis Patient is status post total right knee and left hip arthroplasty. There is evidence of lucency around the femoral and acetabular components of the left hip arthroplasty suggestive of loosening Joints: Degenerative changes noted at the cervical, thoracic and lumbar spine. 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 IMPRESSION: 1. Subacute fracture of the proximal fourth left phalanx. 2. Left hip arthroplasty with questionable loosening. 3. 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 4. Degenerative and demineralization changes as described above. Signed by: Dr. Erasmo Azevedo M.D. on 03/30/2018 9:48 PM
[2018-03-30 22:09] LABS: CLARITY,URINE SL CLOUDY (CLEAR); COLOR,URINE YELLOW (YELLOW)
[2018-03-30 22:10] LABS: BILIRUBIN,URINE NEGATIVE (NEGATIVE); KETONES,URINE NEGATIVE (NEGATIVE); LEUKOCYTE ESTERASE ,URINE 1+ (NEGATIVE); NITRITE,URINE POSITIVE (NEGATIVE); PROTEIN,URINE DIPSTICK TRACE (NEGATIVE); URINE UROBILINOGEN 1 mg/dL (0.2 - 1)
[2018-03-30 22:24] LABS: BACTERIA,URINE MANY /HPF
[2018-03-30 23:30] VITALS: BP 180/81
[2018-03-31] VITALS (10 sets, daily range): BP systolic 123–193; BP diastolic 56–95
[2018-03-31 01:34] LABS: CREATINE KINASE < 7 IU/L (29-168)
[2018-03-31] MEDS: HYDRALAZINE HCL 20 MG/ML VIAL IV PRN ×4 (04:38→15:55)
[2018-03-31 07:05] LABS: BASOPHILS % 0.4 % (0.0-1.0); EOSINOPHILS # (AUTO) 0.2 (0.0-0.4); EOSINOPHILS % 2.3 % (0.0-6.0); HEMATOCRIT 30.4 % (34.2-44.1); HEMOGLOBIN 9.2 g/dL (12.0-16.0); LYMPHOCYTES # (AUTO) 1.5 (1.0-3.2); LYMPHOCYTES % 15.5 % (18.0-39.1); MEAN CORPUSCULAR HEMOGLOBIN 22.7 pg (28-32); MEAN CORPUSCULAR HGB CONC 30.3 g/dL (31-35); MEAN CORPUSCULAR VOLUME 75.1 fL (81-99); MONOCYTES # (AUTO) 0.6 (0.2-0.8); NEUTROPHILS # (AUTO) 7.4 (2.1-6.9); NEUTROPHILS % 75.5 % (38.7-80.0); PLATELET COUNT 275 x10e3/uL (140-360); RED BLOOD COUNT 4.05 x10e6/uL (3.6-5.1); RED CELL DISTRIBUTION WIDTH 16.3 % (11.7-14.4)
[2018-03-31 08:01] LABS: ALANINE AMINOTRANSFERASE 52 IU/L (0-55); ALBUMIN 2.2 g/dL (3.5-5.0); ALBUMIN/GLOBULIN RATIO 0.5 (0.8-2.0); ALKALINE PHOSPHATASE 171 IU/L (40-150); ANION GAP 10.5 mmol/L (8-16); BLOOD UREA NITROGEN 14 mg/dL (7-26); BUN/CREATININE RATIO 23 (6-25); CALCIUM 11.3 mg/dL (8.4-10.2); CARBON DIOXIDE 24 mmol/L (22-29); CHLORIDE 107 mmol/L (98-107); EST GLOMERULAR FILTRATION RATE > 60 ML/MIN (60-); GLUCOSE 109 mg/dL (74-118); POTASSIUM 3.5 mmol/L (3.5-5.1); SODIUM 138 mmol/L (136-145)
[2018-03-31] MEDS ORDERED: NITROFURANTOIN MACROCRYSTALS 100 MG CAP PO SCH (09:00)
[2018-03-31] MEDS ORDERED: TOLTERODINE TARTRATE 4 MG CAPCR PO SCH (09:00)
[2018-03-31] MEDS ORDERED: CEFTRIAXONE SOD 1 GM VIAL IV SCH (09:00)
[2018-03-31] MEDS ORDERED: LISINOPRIL 20 MG TAB PO SCH (09:00)
[2018-03-31] MEDS ORDERED: PANTOPRAZOLE SOD 40 MG TABEC PO SCH (09:00)
[2018-03-31] MEDS ORDERED: NIFEDIPINE CR 30 MG TAB PO SCH (09:00)
[2018-03-31] MEDS ORDERED: SERTRALINE HCL 50 MG TAB PO SCH (09:00)
[2018-03-31] MEDS ORDERED: ONDANSETRON HCL INJ 2 MG/ML VIAL IV PRN (09:15)
[2018-03-31] MEDS ORDERED: HYDRALAZINE HCL 20 MG/ML VIAL IV PRN (09:15)
[2018-03-31] MEDS ORDERED: METOPROLOL TARTRATE 50 MG TAB PO SCH (09:15)
[2018-03-31] MEDS ORDERED: ONDANSETRON HCL 4 MG ORAL DISINTEGRATING TAB PO PRN (09:15)
[2018-03-31] MEDS: SODIUM CHLORIDE 0.9% 1000ML 1,000 ML IV SCH ×2 (09:56→20:48)
[2018-03-31] MEDS: CLONIDINE HCL 0.2 MG/24 HR 1 EA PATCH TOP SCH (09:56)
[2018-03-31] MEDS: TOLTERODINE TARTRATE 2 MG TAB PO SCH ×2 (09:56→16:57)
[2018-03-31] MEDS: LISINOPRIL 20 MG TAB PO SCH ×2 (09:56→16:57)
[2018-03-31] MEDS: CEFEPIME HCL 1 GM VIAL IV SCH ×2 (09:56→20:48)
[2018-03-31 10:02] LABS: CREATINE KINASE < 7 IU/L (29-168)
--- NOTE | 2018-03-31 10:59 | History and Physical ---
ADDENDUM TO HISTORY AND PHYSICAL Further history obtained. PAST MEDICAL HISTORY: Included also hyperlipidemia and diabetes type 2 not on medicine. PAST SURGICAL HISTORY: Right knee surgery. Right hip replacement. Bilateral cataracts. The patient saw Dr. Mcdonald, interior design consultant when she was here last month. History has included 7 child births, multiple falls. FAMILY HISTORY: Includes coronary artery disease, "brain cancer", hypertension, hyperlipidemia, diabetes. The patient has a 5th grade education. No prior known use of alcohol or tobacco. Job#: [id number] GH
[2018-03-31 11:42] LABS: ANION GAP 11.6 mmol/L (8-16); BLOOD UREA NITROGEN 13 mg/dL (7-26); BUN/CREATININE RATIO 22 (6-25); CALCIUM 11.3 mg/dL (8.4-10.2); CARBON DIOXIDE 22 mmol/L (22-29); CHLORIDE 106 mmol/L (98-107); EST GLOMERULAR FILTRATION RATE > 60 ML/MIN (60-); GLUCOSE 110 mg/dL (74-118); POTASSIUM 3.6 mmol/L (3.5-5.1); SODIUM 136 mmol/L (136-145)
[2018-03-31] MEDS ORDERED: NITROGLYCERIN 0.4 MG SUBL SL PRN (13:00)
--- NOTE | 2018-03-31 13:30 | Consultation ---
DATE OF CONSULTATION: March 31, 2018 CARDIOLOGY CONSULTATION REQUESTING PHYSICIAN: Dr. Gus Vegas REASON FOR CONSULTATION: Chest pain. HISTORY OF PRESENT ILLNESS: This is an 87-year-old woman with a history of recent posterior cerebral artery CVA, hypertension, hyperlipidemia, atrial fibrillation not on anticoagulation, and diabetes mellitus, who presented with complaint of chest pain. The patient was recently discharged from [facility] after her acute CVA. She was residing at [facility] when she complained of chest pain. The pain was associated with shortness of breath, nausea and diaphoresis. It lasted approximately 30 minutes. There was no radiation or aggravating or alleviating factors. Family indicates the patient has not progressed with physical therapy after her discharge. She remains bedbound and intermittently confused, often talking with family members. REVIEW OF SYSTEMS: Negative, except as per HPI. PAST MEDICAL HISTORY 1. Recent right posterior cerebral artery CVA. 2. Hypertension. 3. Hyperlipidemia. 4. Diabetes mellitus. 5. Atrial fibrillation not on anticoagulation due to fall risk. 6. Elevated RVSP by echocardiogram. 7. Chronic type-2 dens fracture. 8. Chronic left humerus fracture. 9. Recent left 4th phalanx fracture. 10. History of renal mass. PAST SURGICAL HISTORY 1. Right knee surgery. 2. Right hip surgery. 3. Bilateral cataract surgery. ALLERGIES: PLEASE SEE EMR. MEDICATIONS: Please see medication list. SOCIAL HISTORY: No tobacco, alcohol, or illicit drugs. FAMILY HISTORY: Noncontributory. PHYSICAL EXAMINATION VITAL SIGNS: Temperature 98.7 degrees, pulse 75, respiratory rate 16, blood pressure 159/84, oxygen saturation 95% on room air. GENERAL: Elderly woman, well developed, well nourished in no acute distress. HEENT: Normocephalic and atraumatic. Pupils are equal. No scleral icterus. NECK: Supple. No thyromegaly or cervical lymphadenopathy. No carotid bruit. LUNGS: Clear to auscultation bilaterally. No wheezes or crackles. CARDIOVASCULAR: Normal rate, regular rhythm. No murmur. Normal S1 and S2. ABDOMEN: Soft. Nontender. EXTREMITIES: No edema. LABS: WBC 9.84, hemoglobin 9.2, hematocrit 30.4, platelets 275. Sodium 136, potassium 3.6, chloride 106, CO2 22, BUN 13, creatinine 0.6. Troponin less than 0.001. BNP 197. EKG: Normal sinus rhythm, right bundle-branch block. IMPRESSION 1. Chest pain. 2. Paroxysmal atrial fibrillation. Not on anticoagulation due to frequent falls. 3. 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 4. Hypertension. 5. Hyperlipidemia. 6. Diabetes mellitus. 7. Elevated right ventricular systolic pressure by echocardiogram. 8. Left renal mass. RECOMMENDATIONS: There has been no evidence of myocardial infarction on serial cardiac biomarkers. Will start the patient on aspirin. Given the patient's bedbound status and poor response to physical therapy as well as her comorbid conditions, recommend conservative medical therapy. This was discussed with the patient's family, who agreed with the plan of care. If she has recurrent chest pain, consider ischemic evaluation at that time. In the meantime, we will increase the patient's cardiac medicines. Thank you for this consult. We will continue to follow. Job#: [id number]
[2018-03-31] MEDS: CARVEDILOL 12.5 MG TAB PO SCH (16:57)
--- NOTE | 2018-03-31 19:59 | Diagnostic Imaging Report ---
PROCEDURE:US RETROPERITONEAL ( KIDNEY ). COMPARISON:Patients [facility], CT, CT ABDOMEN W, 10/01/2017, 17:55. INDICATIONS:COMPARE MASS TO PRIOR CT TECHNIQUE: Barriga-scale and color sonographic images of the bilateral kidneys and bladder where obtained in transverse and longitudinal planes. FINDINGS: Exam limited due to patient weakness,, inability to change positions and overlying bowel gas.. RIGHT KIDNEY: 10.6 cm, cortex 2.1 cm Cysts: None Solid masses: None Stones: None Hydronephrosis: None Echogenicity: Increased LEFT KIDNEY: 9.9 cm, cortex 1.6 cm Cysts: None Solid masses: 4.6 x 4.1 x 3.8 cm irregular shaped hypoechoic mass in the superior and mid aspect, which has internal vascularity, consistent with previously visualized RCC (previously measured approximately 4.1 x 3.4 x 4[address] Stones: None Hydronephrosis: None Echogenicity: Increased Bladder: No focal lesion. Bilateral ureteral jets are identified. CONCLUSION: 1. No significant interval change in size of hypoechoic mass in the superior mid aspect of the left kidney, consistent with previously visualized RCC, when accounting for differences in modality. 2. Increased renal cortical echogenicity, consistent with medical renal disease. Alireza Adams M.D. Dictated by: Alireza Adams M.D. on 03/31/2018 at 20:01 Electronically approved by: Alireza Adams M.D. on 03/31/2018 at 20:01
[2018-03-31] MEDS: QUETIAPINE FUMARATE 25 MG TAB PO PRN (20:48)
[2018-04-01] VITALS (8 sets, daily range): BP systolic 120–179; BP diastolic 55–77
[2018-04-01] MEDS: SODIUM CHLORIDE 0.9% 1000ML 1,000 ML IV SCH (06:17)
[2018-04-01 06:42] LABS: BASOPHILS # (AUTO) 0.1 (0.0-0.1); BASOPHILS % 0.6 % (0.0-1.0); EOSINOPHILS # (AUTO) 0.3 (0.0-0.4); EOSINOPHILS % 3.5 % (0.0-6.0); HEMOGLOBIN 8.4 g/dL (12.0-16.0); LYMPHOCYTES # (AUTO) 1.4 (1.0-3.2); LYMPHOCYTES % 17.3 % (18.0-39.1); MEAN CORPUSCULAR HEMOGLOBIN 22.6 pg (28-32); MEAN CORPUSCULAR VOLUME 75.3 fL (81-99); MONOCYTES # (AUTO) 0.5 (0.2-0.8); MONOCYTES % 6.5 % (4.4-11.3); NEUTROPHILS # (AUTO) 5.7 (2.1-6.9); NEUTROPHILS % 71.3 % (38.7-80.0); PLATELET COUNT 248 x10e3/uL (140-360); RED BLOOD COUNT 3.72 x10e6/uL (3.6-5.1); RED CELL DISTRIBUTION WIDTH 16.8 % (11.7-14.4)
[2018-04-01 07:05] LABS: ALANINE AMINOTRANSFERASE 38 IU/L (0-55); ALBUMIN/GLOBULIN RATIO 0.5 (0.8-2.0); ALKALINE PHOSPHATASE 147 IU/L (40-150); ANION GAP 10.6 mmol/L (8-16); BLOOD UREA NITROGEN 13 mg/dL (7-26); BUN/CREATININE RATIO 22 (6-25); CALCIUM 10.7 mg/dL (8.4-10.2); CARBON DIOXIDE 21 mmol/L (22-29); CHLORIDE 112 mmol/L (98-107); EST GLOMERULAR FILTRATION RATE > 60 ML/MIN (60-); GLUCOSE 94 mg/dL (74-118); MAGNESIUM 1.4 MG/DL (1.3-2.1); POTASSIUM 3.6 mmol/L (3.5-5.1); SODIUM 140 mmol/L (136-145)
[2018-04-01 07:26] LABS: THYROID STIMULATING HORMONE 2.856 uIU/mL (0.350-4.940)
[2018-04-01 08:02] LABS: FOLATE 8.3 ng/mL (7.0-15.4)
[2018-04-01] MEDS: TOLTERODINE TARTRATE 2 MG TAB PO SCH ×2 (08:56→17:06)
[2018-04-01] MEDS: ASPIRIN 81 MG ENTERIC COATED PO SCH (08:56)
[2018-04-01] MEDS: CARVEDILOL 12.5 MG TAB PO SCH ×2 (08:56→17:06)
[2018-04-01] MEDS: LISINOPRIL 20 MG TAB PO SCH ×2 (08:57→17:06)
[2018-04-01] MEDS: CEFEPIME HCL 1 GM VIAL IV SCH ×2 (08:57→20:27)
[2018-04-01] MEDS ORDERED: NIFEDIPINE CR 30 MG TAB PO SCH (09:00)
--- NOTE | 2018-04-01 14:32 | Diagnostic Imaging Report ---
PROCEDURE:MODIFIED BA. SWALLOW COMPARISON:None. INDICATIONS:DYSPHAGIA DISCUSSION: Fluoroscopic examination was performed in conjunction with speech pathology during swallowing of a variety of thin and thick liquid consistencies. RADIATION DOSE: Total Time: 1.2 Cumulative area dose product: 0.834 Gycm\S\2 Cumulative air kerma: 8.376 mGy FINDINGS: PREMATURE SPILLAGE: Over the base of the tongue: None. To vallecula: With mixed texture To pyriform sinus: None. LARYNGEAL PENETRATION: With cup sip thin only ASPIRATION: Trace aspiration with cup sip thin RESIDUE: VALLECULA: Mild with thick pure, which clears with thin rims PYRIFORM SINUS: None PHARYNGEAL WALL: None BASE OF TONGUE: With the pure, which clears with thin rents CONCLUSION:Penetration with thin liquid. Please see report from speech pathology for complete details. Dictated by: Cesar Greenberg M.D. on 04/01/2018 at 14:34 Electronically approved by: Cesar Greenberg M.D. on 04/01/2018 at 14:34
[2018-04-01 15:37] LABS: FREE T4 (FREE THYROXINE) 1.16 ng/dL (0.9-1.8); THYROID STIMULATING HORMONE 2.232 uIU/mL (0.350-4.940)
--- NOTE | 2018-04-01 16:02 | Consultation ---
DATE OF CONSULTATION: April 01, 2018 ENDOCRINE CONSULTATION This is a patient of Dr. Vegas and Dr. Horowitz. This is an 87-year-old white female who is referred to me for evaluation of hypercalcemia. Patient came to the hospital because of CVA with right-sided weakness. On further evaluation, the patient was found to be hypercalcemic. Her PTH levels are within the range. She does have multiple other medical problems including history of chronic atrial fibrillation, accelerated hypertension, congestive cardiac failure and dementia. She also has a history of a fall recently. No history of kidney stones. She does have a history of osteoporosis. Patient is on several medications presently including hydralazine, lisinopril, nifedipine and clonidine. PHYSICAL EXAMINATION GENERAL: Today the patient is awake. VITALS: Heart rate is around 78. Blood pressure 130/80 mmHg. HEENT: Essentially unremarkable. Thyroid is barely palpable. Clinically, she is near euthyroid. CHEST: Bilateral vesicular breathing. She has mild bronchospasm. CARDIAC: First and 2nd heart sounds. There is no 3rd or 4th heart sound. Ejection systolic murmur, grade 2/6. EXTREMITIES: Patient has weakness on the left upper and lower extremities. CLINICAL IMPRESSION 1. Hypercalcemia, rule out hyperparathyroidism, rule out malignancy-induced hypercalcemia. 2. Status post cerebrovascular accident. 3. Hypertension. 4. Chronic atrial fibrillation. 5. Dysphagia. The plan at this time is to do PTH peptide, repeat the serum PTH level and do an ionized calcium. After this evaluation, we will see whether the patient needs to be on Aredia to bring down the calcium levels. In the meantime, continue the IV fluids. Thanks for referring this patient. I will be following this patient with you. Job#: [id number]
[2018-04-01] MEDS: ACETAMINOPHEN 325 MG TAB PO PRN (19:23)
[2018-04-01] MEDS: QUETIAPINE FUMARATE 25 MG TAB PO PRN (20:39)
--- NOTE | 2018-04-01 22:29 | Progress Note ---
DATE: April 01, 2018 CARDIOLOGY PROGRESS NOTE SUBJECTIVE: The patient denies chest pain or shortness of breath. OBJECTIVE VITAL SIGNS: Temperature 99.4 degrees, pulse 81, respiratory rate 19, blood pressure 139/70, oxygen saturation 98% on room air. GENERAL: Awake, alert, in no acute distress. LUNGS: Clear to auscultation bilaterally. No wheezes or crackles. CARDIOVASCULAR: Normal rate, regular rhythm. No murmur. Normal S1, S2. ABDOMEN: Soft, nontender. EXTREMITIES: No edema. CARDIAC MEDICATIONS 1. Carvedilol 25 mg p.o. b.i.d. 2. Lisinopril 20 mg p.o. b.i.d. 3. Nifedipine 30 mg p.o. daily. 4. Aspirin 81 mg p.o. daily. LABS: WBC 8, hemoglobin 8.4, hematocrit 28, platelets 248,000. Sodium 140, potassium 3.6, chloride 112, CO2 21, BUN 13, creatinine 0.6. TELEMETRY: Normal sinus rhythm. IMPRESSION 1. Chest pain. 2. Paroxysmal atrial fibrillation, not on anticoagulation due to frequent falls. 3. 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 4. Hypertension. 5. Hyperlipidemia. 6. Diabetes mellitus. 7. Elevated right ventricular systolic pressure by echocardiogram. 8. Left renal mass. RECOMMENDATIONS: There was no evidence of myocardial infarction on serial cardiac biomarkers. Given the patient's bedbound status and poor response to physical therapy as well as comorbid conditions, recommend conservative medical therapy. This was discussed with the patient's family again which agrees with the plan of care. We will increase nifedipine given the patient's blood pressure remains elevated. Thank you for this consult. We will continue to follow. Job#: [id number] MARY
[2018-04-02] VITALS: BP_SYST 129; BP_SYST 144; BP_DIAS 52; BP_DIAS 55
[2018-04-02] MEDS: BALSAM PERU/CASTOR OIL 60 GM OINT...G. TP SCH ×3 (00:31→21:05)
[2018-04-02 07:05] LABS: BASOPHILS % 0.4 % (0.0-1.0); EOSINOPHILS # (AUTO) 0.3 (0.0-0.4); EOSINOPHILS % 3.2 % (0.0-6.0); HEMATOCRIT 26.3 % (34.2-44.1); HEMOGLOBIN 7.9 g/dL (12.0-16.0); LYMPHOCYTES # (AUTO) 1.5 (1.0-3.2); LYMPHOCYTES % 16.6 % (18.0-39.1); MEAN CORPUSCULAR HEMOGLOBIN 22.5 pg (28-32); MEAN CORPUSCULAR VOLUME 74.9 fL (81-99); MONOCYTES # (AUTO) 0.6 (0.2-0.8); MONOCYTES % 6.8 % (4.4-11.3); NEUTROPHILS # (AUTO) 6.6 (2.1-6.9); NEUTROPHILS % 72.7 % (38.7-80.0); PLATELET COUNT 249 x10e3/uL (140-360); RED BLOOD COUNT 3.51 x10e6/uL (3.6-5.1); RED CELL DISTRIBUTION WIDTH 16.7 % (11.7-14.4)
[2018-04-02 07:35] LABS: ALANINE AMINOTRANSFERASE 31 IU/L (0-55); ALBUMIN 1.9 g/dL (3.5-5.0); ALBUMIN/GLOBULIN RATIO 0.5 (0.8-2.0); ALKALINE PHOSPHATASE 131 IU/L (40-150); ANION GAP 9.6 mmol/L (8-16); BLOOD UREA NITROGEN 15 mg/dL (7-26); BUN/CREATININE RATIO 22 (6-25); CALCIUM 10.5 mg/dL (8.4-10.2); CARBON DIOXIDE 21 mmol/L (22-29); CHLORIDE 111 mmol/L (98-107); CREATININE, SERUM 0.67 mg/dL (0.57-1.11); EST GLOMERULAR FILTRATION RATE > 60 ML/MIN (60-); GLUCOSE 97 mg/dL (74-118); POTASSIUM 3.6 mmol/L (3.5-5.1); SODIUM 138 mmol/L (136-145)
[2018-04-02 07:55] VITALS: BP 150/56
[2018-04-02] MEDS ORDERED: NIFEDIPINE CR 30 MG TAB PO SCH (09:00)
[2018-04-02 09:10] VITALS: BP 150/56
[2018-04-02] MEDS ORDERED: VANCOMYCIN 500MG/NS 0.9% 100ML 100 ML IV SCH (09:30)
[2018-04-02] MEDS: ASPIRIN 81 MG ENTERIC COATED PO SCH (10:25)
[2018-04-02] MEDS: CARVEDILOL 12.5 MG TAB PO SCH ×2 (10:26→16:28)
[2018-04-02] MEDS: TOLTERODINE TARTRATE 2 MG TAB PO SCH ×2 (10:26→16:28)
[2018-04-02] MEDS: LISINOPRIL 20 MG TAB PO SCH ×2 (10:26→16:28)
[2018-04-02] MEDS: CEFEPIME HCL 1 GM VIAL IV SCH ×2 (10:26→21:06)
[2018-04-02] MEDS: ACETAMINOPHEN 325 MG TAB PO PRN (10:26)
[2018-04-02 11:53] VITALS: BP 113/51
[2018-04-02] MEDS: ACETAMINOPHEN 325 MG SUPP PR PRN ×2 (13:16→17:40)
[2018-04-02] MEDS: METOCLOPRAMIDE HCL 10 MG/2ML VIAL IV SCH ×3 (13:16→21:05)
[2018-04-02] MEDS: VANCOMYCIN 500MG/NS 0.9% 100ML 100 ML IV SCH (13:16)
[2018-04-02] MEDS: SODIUM CHLORIDE 0.9% 1000ML 1,000 ML IV SCH (14:00)
[2018-04-02 15:53] VITALS: BP 143/56
[2018-04-02] MEDS ORDERED: FUROSEMIDE INJ 10 MG/ML 2 ML VIAL IV ONE (17:00)
--- NOTE | 2018-04-02 18:38 | Progress Note ---
DATE: April 02, 2018 CARDIOLOGY PROGRESS NOTE SUBJECTIVE: The patient is more alert today. She denies chest pain, but is complaining of pain in her feet. OBJECTIVE VITAL SIGNS: Temperature 99.9 degrees, pulse 75, respiratory rate 16, blood pressure 113/51, oxygen saturation 96% on room air. GENERAL: An elderly woman, awake, alert and in no acute distress. LUNGS: Clear to auscultation bilaterally. No wheezes or crackles. CARDIOVASCULAR: Normal rate, regular rhythm. No murmur. Normal S1, S2. ABDOMEN: Soft, nontender. EXTREMITIES: No edema. Palpable distal pulses. CARDIAC MEDICATIONS 1. Carvedilol 25 mg p.o. b.i.d. 2. Lisinopril 20 mg p.o. b.i.d. 3. Nifedipine 60 mg p.o. daily. 4. Aspirin 81 mg p.o. daily. LABS: WBC 9.06, hemoglobin 7.9, hematocrit 26.3, platelets 249,000, sodium 138, potassium 3.6, chloride 101, CO2 of 21, BUN 15, creatinine 0.67. Urine culture E. coli and MRSA. TELEMETRY: Normal sinus rhythm. IMPRESSION 1. Chest pain. 2. Paroxysmal atrial fibrillation, not on anticoagulation due to frequent falls. 3. 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 4. Escherichia coli and methicillin-resistant Staphylococcus aureus. urinary tract infection. 5. Hypertension. 6. Hyperlipidemia. 7. Diabetes mellitus. 8. Elevated right ventricular systolic pressure by echocardiogram. 9. Left renal mass. RECOMMENDATIONS: There was no evidence of myocardial infarction with serial cardiac biomarkers. Given the patient's bedbound status and poor response to physical therapy as well as comorbid conditions, recommend conservative medical therapy. This was discussed with the patient's family who agreed with the plan of care. The patient's blood pressure remains poorly controlled. Further titrate nifedipine. Antibiotics per primary service. Thank you for this consult. We will continue to follow. Job#: [id number]
[2018-04-02 20:00] VITALS: BP 135/59
[2018-04-02] MEDS: NYSTATIN 15 GM POWDER UD BTL TOP SCH (21:06)
[2018-04-03] VITALS (9 sets, daily range): BP systolic 113–169; BP diastolic 44–71
[2018-04-03] MEDS: QUETIAPINE FUMARATE 25 MG TAB PO PRN ×2 (00:04→20:14)
[2018-04-03] MEDS: VANCOMYCIN 500MG/NS 0.9% 100ML 100 ML IV SCH ×2 (01:46→12:06)
[2018-04-03] MEDS: SODIUM CHLORIDE 0.9% 1000ML 1,000 ML IV SCH ×2 (02:30→15:07)
[2018-04-03 07:04] LABS: BASOPHILS % 0.5 % (0.0-1.0); EOSINOPHILS # (AUTO) 0.3 (0.0-0.4); HEMATOCRIT 27.8 % (34.2-44.1); HEMOGLOBIN 8.2 g/dL (12.0-16.0); LYMPHOCYTES # (AUTO) 1.4 (1.0-3.2); LYMPHOCYTES % 16.7 % (18.0-39.1); MEAN CORPUSCULAR HEMOGLOBIN 22.6 pg (28-32); MEAN CORPUSCULAR HGB CONC 29.5 g/dL (31-35); MEAN CORPUSCULAR VOLUME 76.6 fL (81-99); MONOCYTES # (AUTO) 0.5 (0.2-0.8); MONOCYTES % 5.9 % (4.4-11.3); NEUTROPHILS # (AUTO) 6.2 (2.1-6.9); NEUTROPHILS % 72.4 % (38.7-80.0); PLATELET COUNT 254 x10e3/uL (140-360); RED BLOOD COUNT 3.63 x10e6/uL (3.6-5.1); RED CELL DISTRIBUTION WIDTH 16.5 % (11.7-14.4)
[2018-04-03 08:09] LABS: ANION GAP 10.5 mmol/L (8-16); BLOOD UREA NITROGEN 13 mg/dL (7-26); BUN/CREATININE RATIO 22 (6-25); CALCIUM 10.1 mg/dL (8.4-10.2); CARBON DIOXIDE 21 mmol/L (22-29); CHLORIDE 110 mmol/L (98-107); EST GLOMERULAR FILTRATION RATE > 60 ML/MIN (60-); GLUCOSE 104 mg/dL (74-118); POTASSIUM 3.5 mmol/L (3.5-5.1); SODIUM 138 mmol/L (136-145)
[2018-04-03] MEDS ORDERED: BALSAM PERU/CASTOR OIL 60 GM OINT...G. TP SCH (09:00)
[2018-04-03] MEDS: TOLTERODINE TARTRATE 2 MG TAB PO SCH ×2 (09:00→16:42)
[2018-04-03] MEDS: LISINOPRIL 20 MG TAB PO SCH ×2 (09:00→16:42)
[2018-04-03] MEDS ORDERED: FUROSEMIDE INJ 10 MG/ML 2 ML VIAL IV SCH (09:00)
[2018-04-03] MEDS: NIFEDIPINE CR 30 MG TAB PO SCH (09:00)
[2018-04-03] MEDS: ASPIRIN 81 MG ENTERIC COATED PO SCH (09:00)
[2018-04-03] MEDS: CARVEDILOL 12.5 MG TAB PO SCH ×2 (09:00→16:42)
[2018-04-03] MEDS: BALSAM PERU/CASTOR OIL 60 GM OINT...G. TP SCH ×2 (09:12→20:13)
[2018-04-03] MEDS: METOCLOPRAMIDE HCL 10 MG/2ML VIAL IV SCH ×4 (09:12→20:13)
[2018-04-03] MEDS: NYSTATIN 15 GM POWDER UD BTL TOP SCH ×2 (09:12→20:13)
[2018-04-03] MEDS: CEFEPIME HCL 1 GM VIAL IV SCH ×2 (09:12→20:14)
[2018-04-03] MEDS: HYDRALAZINE HCL 20 MG/ML VIAL IV PRN (09:21)
[2018-04-03] MEDS: ACETAMINOPHEN 325 MG SUPP PR PRN (10:35)
[2018-04-03] MEDS: FUROSEMIDE INJ 10 MG/ML 2 ML VIAL IV SCH (14:25)
[2018-04-03] MEDS ORDERED: BISACODYL 10 MG SUPP PR PRN (17:15)
[2018-04-03] MEDS ORDERED: MINERAL OIL 132 ML BTL PR PRN (17:15)
[2018-04-03] MEDS: MEGACE 400MG/ 10ML CUP PO SCH (17:53)
--- NOTE | 2018-04-03 21:27 | Progress Note ---
DATE: April 03, 2018 CARDIOLOGY PROGRESS NOTE SUBJECTIVE: The patient complained of chest pain today. She denied any shortness of breath. The patient is refusing her medications. OBJECTIVE VITAL SIGNS: Temperature 98.1 degrees, pulse 74, respiratory rate 18, blood pressure 113/50, oxygen saturation 95%. GENERAL: An elderly woman, awake, and in no acute distress. LUNGS: Clear to auscultation bilaterally. No wheezes or crackles. CARDIOVASCULAR: Normal rate, regular rhythm. No murmur. Normal S1, S2. ABDOMEN: Soft, nontender. EXTREMITIES: No edema. CARDIAC MEDICATIONS 1. Carvedilol 25 mg p.o. b.i.d. 2. Lisinopril 20 mg p.o. b.i.d. 3. Furosemide 20 mg IV daily. 4. Nifedipine 90 mg p.o. daily. 5. Aspirin 81 mg p.o. daily. LABS: WBC 8.2, hemoglobin 27.8, platelets 254,000, sodium 138, potassium 3.5, chloride 110, CO2 of 21, BUN 13, creatinine 0.6. TELEMETRY: Normal sinus rhythm. IMPRESSION 1. Chest pain. 2. Paroxysmal atrial fibrillation, not on anticoagulation due to frequent falls. 3. 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 4. Escherichia coli and methicillin-resistant Staphylococcus aureus urinary tract infection. 5. Hypertension. 6. Hyperlipidemia. 7. Diabetes mellitus. 8. Elevated right ventricular systolic pressure by echocardiogram. 9. Left renal mass. RECOMMENDATIONS: There is no evidence of myocardial infarction on serial cardiac biomarkers. Given the patient's bedbound status and poor response to physical therapy as well as her comorbid condition, recommend conservative medical therapy. The patient is refusing some of her medications. Would optimally stop clonidine and add isosorbide mononitrate if the patient is willing to take oral medications. Monitor for now. Antibiotics per primary service. Thank you for this consult. We will continue to follow. Job#: [id number] GH
[2018-04-04] VITALS (10 sets, daily range): BP systolic 139–192; BP diastolic 63–78
[2018-04-04] MEDS: VANCOMYCIN 500MG/NS 0.9% 100ML 100 ML IV SCH ×2 (01:00→13:05)
[2018-04-04] MEDS: SODIUM CHLORIDE 0.9% 1000ML 1,000 ML IV SCH (04:00)
[2018-04-04] MEDS: HYDRALAZINE HCL 20 MG/ML VIAL IV PRN ×3 (05:28→18:30)
[2018-04-04] MEDS: MEGACE 400MG/ 10ML CUP PO SCH (08:43)
[2018-04-04] MEDS: FUROSEMIDE INJ 10 MG/ML 2 ML VIAL IV SCH (08:43)
[2018-04-04] MEDS: METOCLOPRAMIDE HCL 10 MG/2ML VIAL IV SCH ×4 (08:43→18:30)
[2018-04-04] MEDS: ASPIRIN 81 MG ENTERIC COATED PO SCH (08:44)
[2018-04-04] MEDS: CARVEDILOL 12.5 MG TAB PO SCH (08:44)
[2018-04-04] MEDS: NYSTATIN 15 GM POWDER UD BTL TOP SCH ×2 (08:44→21:17)
[2018-04-04] MEDS: BALSAM PERU/CASTOR OIL 60 GM OINT...G. TP SCH ×2 (08:44→21:17)
[2018-04-04] MEDS: CEFEPIME HCL 1 GM VIAL IV SCH ×2 (08:44→21:17)
[2018-04-04] MEDS: LISINOPRIL 20 MG TAB PO SCH (08:45)
[2018-04-04] MEDS: TOLTERODINE TARTRATE 2 MG TAB PO SCH ×2 (08:45→17:00)
[2018-04-04] MEDS: NIFEDIPINE CR 30 MG TAB PO SCH (08:45)
[2018-04-04] MEDS: SENNA-S TABLET PO SCH (08:45)
[2018-04-04] MEDS ORDERED: FUROSEMIDE INJ 10 MG/ML 2 ML VIAL IV SCH (09:00)
[2018-04-04] MEDS: ACETAMINOPHEN 325 MG SUPP PR PRN (09:34)
[2018-04-04] MEDS ORDERED: LABETALOL HCL 5 MG/ML 20ML VIAL IV PRN (11:30)
[2018-04-04] MEDS ORDERED: HYDRALAZINE HCL 20 MG/ML VIAL IV NR (11:30)
[2018-04-04] MEDS: SOD CHL 0.45%/POT CHL 20MEQ 1,000 ML IV SCH (12:00)
[2018-04-04] MEDS: ENALAPRILAT IV INJ 1.25 MG/ML VIAL IV SCH ×2 (12:00→17:39)
--- NOTE | 2018-04-04 12:20 | Progress Note ---
DATE: April 04, 2018 CARDIOLOGY PROGRESS NOTE SUBJECTIVE: The patient denies chest pain. However, she is refusing her medications. OBJECTIVE VITALS: Temperature 99.1 degrees, pulse 53, respiratory rate 17, blood pressure 190/77, oxygen saturation 94% on room air. GENERAL: Elderly woman awake and in no acute distress. LUNGS: Clear to auscultation bilaterally. No wheezes or crackles. CARDIOVASCULAR: Normal rate. Regular rhythm. No murmur. Normal S1 and S2. ABDOMEN: Soft and nontender. EXTREMITIES: No edema. CARDIAC MEDICATIONS 1. Furosemide 20 mg IV daily. 2. Clonidine patch every week. 3. Metoprolol tartrate 5 mg IV q.8 h. 4. Enalapril 0.625 mg IV q.6 h. LABS: None today. Telemetry is normal sinus rhythm. IMPRESSION 1. Chest pain. 2. Hypertension, uncontrolled. 3. Paroxysmal atrial fibrillation: Not on anticoagulation due to frequent falls. 4. 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 5. Escherichia coli and methicillin-resistant Staphylococcus aureus urinary tract infection. 6. Hypertension. 7. Hyperlipidemia. 8. Diabetes mellitus. 9. Elevated right ventricular systolic pressure by echocardiogram. 10. Left renal mass. RECOMMENDATIONS: There was no evidence of myocardial infarction on serial cardiac biomarkers. Given the patient's bedbound status, poor response to physical therapy, medication noncompliance, and comorbid conditions, recommend conservative medical therapy. The patient has repeatedly refused her hypertensive therapies, which is resulting on uncontrolled high blood pressure. Continue clonidine. Add intravenous labetalol. Noted addition of intravenous enalapril and metoprolol as well. Antibiotics per primary service. Thank you for this consult. We will continue to follow. Job#: [id number] SON
[2018-04-04] MEDS: METOPROLOL TARTRATE INJ 1 MG/ML VIAL IV SCH ×2 (14:01→21:18)
[2018-04-04] MEDS: QUETIAPINE FUMARATE 25 MG TAB PO PRN (21:18)
[2018-04-05] VITALS (9 sets, daily range): BP systolic 130–192; BP diastolic 58–77
[2018-04-05] MEDS: ENALAPRILAT IV INJ 1.25 MG/ML VIAL IV SCH ×4 (00:17→18:24)
[2018-04-05] MEDS: VANCOMYCIN 500MG/NS 0.9% 100ML 100 ML IV SCH ×2 (01:14→13:18)
[2018-04-05] MEDS: SOD CHL 0.45%/POT CHL 20MEQ 1,000 ML IV SCH ×2 (01:20→17:30)
[2018-04-05] MEDS: ACETAMINOPHEN 325 MG SUPP PR PRN ×3 (04:48→13:18)
[2018-04-05] MEDS: METOPROLOL TARTRATE INJ 1 MG/ML VIAL IV SCH ×3 (06:28→21:04)
[2018-04-05 07:29] LABS: BASOPHILS # (AUTO) 0.1 (0.0-0.1); BASOPHILS % 0.5 % (0.0-1.0); EOSINOPHILS # (AUTO) 0.2 (0.0-0.4); EOSINOPHILS % 1.9 % (0.0-6.0); HEMATOCRIT 28.2 % (34.2-44.1); HEMOGLOBIN 8.4 g/dL (12.0-16.0); LYMPHOCYTES # (AUTO) 1.2 (1.0-3.2); LYMPHOCYTES % 11.1 % (18.0-39.1); MEAN CORPUSCULAR HEMOGLOBIN 22.1 pg (28-32); MEAN CORPUSCULAR HGB CONC 29.8 g/dL (31-35); MEAN CORPUSCULAR VOLUME 74.2 fL (81-99); MONOCYTES # (AUTO) 0.7 (0.2-0.8); MONOCYTES % 6.4 % (4.4-11.3); NEUTROPHILS # (AUTO) 8.7 (2.1-6.9); NEUTROPHILS % 79.6 % (38.7-80.0); PLATELET COUNT 285 x10e3/uL (140-360); RED CELL DISTRIBUTION WIDTH 16.6 % (11.7-14.4)
[2018-04-05 08:09] LABS: ALANINE AMINOTRANSFERASE 21 IU/L (0-55); ALBUMIN/GLOBULIN RATIO 0.5 (0.8-2.0); ALKALINE PHOSPHATASE 127 IU/L (40-150); ANION GAP 12.5 mmol/L (8-16); BLOOD UREA NITROGEN 11 mg/dL (7-26); BUN/CREATININE RATIO 18 (6-25); CALCIUM 10.7 mg/dL (8.4-10.2); CARBON DIOXIDE 21 mmol/L (22-29); CHLORIDE 109 mmol/L (98-107); EST GLOMERULAR FILTRATION RATE > 60 ML/MIN (60-); GLUCOSE 85 mg/dL (74-118); MAGNESIUM 1.2 MG/DL (1.3-2.1); PHOSPHORUS 2.6 MG/DL (2.3-4.7); POTASSIUM 3.5 mmol/L (3.5-5.1); SODIUM 139 mmol/L (136-145)
[2018-04-05] MEDS: SENNA-S TABLET PO SCH (08:57)
[2018-04-05] MEDS: FUROSEMIDE INJ 10 MG/ML 2 ML VIAL IV SCH (08:57)
[2018-04-05] MEDS: BALSAM PERU/CASTOR OIL 60 GM OINT...G. TP SCH ×2 (08:57→21:04)
[2018-04-05] MEDS: TOLTERODINE TARTRATE 2 MG TAB PO SCH ×2 (08:57→16:49)
[2018-04-05] MEDS: HYDRALAZINE HCL 20 MG/ML VIAL IV PRN (08:57)
[2018-04-05] MEDS: METOCLOPRAMIDE HCL 10 MG/2ML VIAL IV SCH ×4 (08:57→21:04)
[2018-04-05] MEDS: CEFEPIME HCL 1 GM VIAL IV SCH ×2 (08:57→21:04)
[2018-04-05] MEDS: MEGACE 400MG/ 10ML CUP PO SCH (08:57)
[2018-04-05] MEDS: NYSTATIN 15 GM POWDER UD BTL TOP SCH ×2 (08:57→21:04)
--- NOTE | 2018-04-05 17:00 | Progress Note ---
DATE: April 05, 2018 CARDIOLOGY PROGRESS NOTE SUBJECTIVE: The patient is somnolent. However, does awaken to tactile stimuli. Was able to deny chest pain or shortness of breath. OBJECTIVE VITALS: Temperature 97.1 degrees, pulse 64, respiratory rate 18, blood pressure 130/58, oxygen saturation 96%. GENERAL: A well-developed, well-nourished woman somnolent and in no acute distress. LUNGS: Clear to auscultation bilaterally. No wheezes or crackles. CARDIOVASCULAR: Normal rate. Regular rhythm. No murmur. Normal S1 and S2. ABDOMEN: Soft and nontender. EXTREMITIES: No edema. CARDIAC MEDICATIONS 1. Metoprolol tartrate 5 mg IV q.8 h. 2. Enalapril at 0.625 mg IV q.6 h. 3. Furosemide 20 mg IV daily. 4. Hydralazine 10 mg IV q.3 h. 5. Clonidine patch. LABS: WBC 10.85, hemoglobin 8.4, hematocrit 28.2, and platelets 285,000. Sodium 139, potassium 3.5, chloride 109, CO2 21, BUN 11, creatinine 0.6. Telemetry is normal sinus rhythm. IMPRESSION 1. Chest pain. 2. Hypertension, improved. 3. Paroxysmal atrial fibrillation, not on anticoagulation due to frequent falls. 4. 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 5. Escherichia coli methicillin-resistant Staphylococcus aureus urinary tract infection. 6. Hypertension. 7. Hyperlipidemia. 8. Diabetes mellitus. 9. Elevated right ventricular systolic pressure by echocardiogram. 10. Left renal mass. RECOMMENDATIONS: Given the patient's bedbound status, poor response to physical therapy, medication compliance, and comorbid conditions, recommend conservative medical therapy. Continue current cardiac medications. Antibiotics per primary service. Thank you for this consult. We will continue to follow. Job#: [id number] SON
[2018-04-06] VITALS (7 sets, daily range): BP systolic 169–194; BP diastolic 72–85
[2018-04-06] MEDS: VANCOMYCIN 500MG/NS 0.9% 100ML 100 ML IV SCH ×2 (01:22→12:42)
[2018-04-06] MEDS: ENALAPRILAT IV INJ 1.25 MG/ML VIAL IV SCH ×4 (01:22→18:08)
[2018-04-06] MEDS: METOPROLOL TARTRATE INJ 1 MG/ML VIAL IV SCH ×3 (06:10→21:09)
[2018-04-06 07:17] LABS: INR 1.4; PROTHROMBIN TIME 16.1 seconds (11.9-14.5)
[2018-04-06] MEDS: SENNA-S TABLET PO SCH (09:00)
[2018-04-06] MEDS: MEGACE 400MG/ 10ML CUP PO SCH (09:00)
[2018-04-06] MEDS: TOLTERODINE TARTRATE 2 MG TAB PO SCH ×2 (09:00→16:51)
[2018-04-06] MEDS: SOD CHL 0.45%/POT CHL 20MEQ 1,000 ML IV SCH ×2 (09:16→18:09)
[2018-04-06] MEDS: METOCLOPRAMIDE HCL 10 MG/2ML VIAL IV SCH ×4 (09:16→20:56)
[2018-04-06] MEDS: CEFEPIME HCL 1 GM VIAL IV SCH ×2 (09:16→21:07)
[2018-04-06] MEDS: BALSAM PERU/CASTOR OIL 60 GM OINT...G. TP SCH ×2 (09:16→21:07)
[2018-04-06] MEDS: NYSTATIN 15 GM POWDER UD BTL TOP SCH ×2 (09:16→21:10)
[2018-04-06] MEDS: FUROSEMIDE INJ 10 MG/ML 2 ML VIAL IV SCH (09:16)
[2018-04-06] MEDS: HYDRALAZINE HCL 20 MG/ML VIAL IV PRN (09:47)
--- NOTE | 2018-04-06 13:05 | Progress Note ---
DATE: April 06, 2018 CARDIOLOGY PROGRESS NOTE SUBJECTIVE: The patient denies chest pain or shortness of breath. She is scheduled for PEG today. OBJECTIVE VITALS: Temperature 98.6 degrees, pulse 75, respiratory rate 18, blood pressure 192/77, oxygen saturation 95% on room air. GENERAL: A well-developed, well-nourished woman in no acute distress. LUNGS: Clear to auscultation bilaterally. No wheezes or crackles. CARDIOVASCULAR: Normal rate. Regular rhythm. No murmur. Normal S1 and S2. ABDOMEN: Soft and nontender. EXTREMITIES: No edema. NEURO: Confused. CARDIAC MEDICATIONS 1. Furosemide 20 mg IV daily. 2. Metoprolol tartrate 5 mg IV q.8 h. 3. Enalapril at 0.625 mg IV q.6 h. 4. Clonidine topically. LABS: INR 1.4. TELEMETRY: Normal sinus rhythm. IMPRESSION 1. Chest pain. 2. Hypertension, uncontrolled. 3. Paroxysmal atrial fibrillation, not on anticoagulation due to frequent falls. 4. 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 5. Escherichia coli and methicillin-resistant Staphylococcus aureus urinary tract infection. 6. Hyperlipidemia. 7. Diabetes mellitus. 8. Elevated right ventricular systolic pressure by echocardiogram. 9. Left renal mass. RECOMMENDATIONS: Given the patient's bedbound status, poor response to physical therapy, medication noncompliance, and comorbid conditions, recommend conservative medical therapy. Continue current cardiac medications. Once PEG is in place and cleared for use, resume p.o. antihypertensive therapies. Antibiotics per primary service. Thank you for this consult. We will continue to follow. Job#: [id number]
[2018-04-06] MEDS: ACETAMINOPHEN 325 MG SUPP PR PRN (14:26)
[2018-04-06] MEDS ORDERED: PROPOFOL IV EMULSION 10 MG/ML 20 ML VIAL ONE (19:07)
[2018-04-07] VITALS (9 sets, daily range): BP systolic 0–190; BP diastolic 65–192
[2018-04-07] MEDS: VANCOMYCIN 500MG/NS 0.9% 100ML 100 ML IV SCH ×2 (01:00→13:02)
[2018-04-07] MEDS: METOPROLOL TARTRATE INJ 1 MG/ML VIAL IV SCH ×2 (05:46→13:02)
[2018-04-07] MEDS: ENALAPRILAT IV INJ 1.25 MG/ML VIAL IV SCH ×4 (05:47→17:31)
[2018-04-07] MEDS: SOD CHL 0.45%/POT CHL 20MEQ 1,000 ML IV SCH ×2 (06:14→17:31)
[2018-04-07] MEDS: SENNA-S TABLET PO SCH (07:48)
[2018-04-07] MEDS: MEGACE 400MG/ 10ML CUP PO SCH (07:48)
[2018-04-07] MEDS: TOLTERODINE TARTRATE 2 MG TAB PO SCH (07:48)
[2018-04-07] MEDS: FUROSEMIDE INJ 10 MG/ML 2 ML VIAL IV SCH (08:14)
[2018-04-07] MEDS: BALSAM PERU/CASTOR OIL 60 GM OINT...G. TP SCH ×2 (08:14→21:00)
[2018-04-07] MEDS: METOCLOPRAMIDE HCL 10 MG/2ML VIAL IV SCH ×3 (08:14→17:31)
[2018-04-07] MEDS: CLONIDINE HCL 0.2 MG/24 HR 1 EA PATCH TOP SCH (08:14)
[2018-04-07] MEDS: HYDRALAZINE HCL 20 MG/ML VIAL IV PRN (08:14)
[2018-04-07] MEDS: NYSTATIN 15 GM POWDER UD BTL TOP SCH ×2 (08:14→21:00)
[2018-04-07] MEDS ORDERED: CARVEDILOL 12.5 MG TAB PO SCH (09:00)
[2018-04-07] MEDS ORDERED: LISINOPRIL 20 MG TAB PO SCH (09:00)
[2018-04-07] MEDS ORDERED: AMLODIPINE BESYLATE 5 MG TAB PO SCH (09:00)
[2018-04-07] MEDS ORDERED: QUETIAPINE FUMARATE 25 MG TAB PEG PRN (12:15)
[2018-04-07] MEDS: ACETAMINOPHEN 325 MG SUPP PR PRN (13:03)
--- NOTE | 2018-04-07 14:15 | Progress Note ---
DATE: April 07, 2018 CARDIOLOGY PROGRESS NOTE SUBJECTIVE: The patient is confused. She underwent PEG placement yesterday. OBJECTIVE VITALS: Temperature 98.3 degrees, pulse 82, respiratory rate 18, blood pressure 190/79, oxygen saturation 95% on room air. GENERAL: Elderly woman in no acute distress, confused. LUNGS: Clear to auscultation bilaterally. No wheezes or crackles. CARDIOVASCULAR: Normal rate. Regular rhythm. No murmur. Normal S1 and S2. ABDOMEN: Soft and nontender. EXTREMITIES: No edema. NEURO: Confused. CARDIAC MEDICATIONS 1. Metoprolol tartrate 5 mg IV q.8 h. 2. Furosemide 20 mg IV daily. LABS: None today. TELEMETRY: Normal sinus rhythm. IMPRESSION 1. Chest pain. 2. Hypertension, uncontrolled. 3. Paroxysmal atrial fibrillation, not on anticoagulation due to frequent falls. 4. 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 5. Escherichia coli and methicillin-resistant Staphylococcus aureus urinary tract infection. 6. Hyperlipidemia. 7. Diabetes mellitus. 8. Elevated right ventricular systolic pressure by echocardiogram. 9. Left renal mass. RECOMMENDATIONS: Given the patient's bedbound status, poor response to physical therapy, medication noncompliance, and comorbid conditions, recommend conservative medical therapy. Continue current cardiac medications. P.O. antihypertensive medications have been ordered once PEG is cleared for use. Antibiotics per primary service. Thank you for this consult. We will continue to follow. Job#: [id number]
[2018-04-07] MEDS: CARVEDILOL 12.5 MG TAB PEG SCH (18:52)
[2018-04-07] MEDS: KETOROLAC TROMETHAMINE 30 MG/ML VIAL IV PRN (18:52)
[2018-04-07] MEDS: TOLTERODINE TARTRATE 2 MG TAB PEG SCH (18:52)
[2018-04-08] VITALS (8 sets, daily range): BP systolic 137–192; BP diastolic 58–81
[2018-04-08] MEDS: VANCOMYCIN 500MG/NS 0.9% 100ML 100 ML IV SCH (01:07)
[2018-04-08 06:58] LABS: BASOPHILS % 0.6 % (0.0-1.0); EOSINOPHILS # (AUTO) 0.2 (0.0-0.4); EOSINOPHILS % 3.3 % (0.0-6.0); HEMATOCRIT 27.1 % (34.2-44.1); HEMOGLOBIN 8.2 g/dL (12.0-16.0); LYMPHOCYTES # (AUTO) 1.2 (1.0-3.2); LYMPHOCYTES % 16.4 % (18.0-39.1); MEAN CORPUSCULAR HEMOGLOBIN 22.4 pg (28-32); MEAN CORPUSCULAR HGB CONC 30.3 g/dL (31-35); MONOCYTES # (AUTO) 0.5 (0.2-0.8); MONOCYTES % 6.9 % (4.4-11.3); NEUTROPHILS # (AUTO) 5.1 (2.1-6.9); NEUTROPHILS % 72.5 % (38.7-80.0); PLATELET COUNT 257 x10e3/uL (140-360); RED BLOOD COUNT 3.66 x10e6/uL (3.6-5.1); RED CELL DISTRIBUTION WIDTH 16.7 % (11.7-14.4)
[2018-04-08 07:22] LABS: CALCIUM IONIZED 1.6 mmol/L (1.09-1.30)
[2018-04-08 07:35] LABS: ANION GAP 10.8 mmol/L (8-16); BLOOD UREA NITROGEN 20 mg/dL (7-26); BUN/CREATININE RATIO 32 (6-25); CALCIUM 11.1 mg/dL (8.4-10.2); CARBON DIOXIDE 23 mmol/L (22-29); CHLORIDE 106 mmol/L (98-107); CREATININE, SERUM 0.62 mg/dL (0.57-1.11); EST GLOMERULAR FILTRATION RATE > 60 ML/MIN (60-); GLUCOSE 126 mg/dL (74-118); POTASSIUM 3.8 mmol/L (3.5-5.1); SODIUM 136 mmol/L (136-145)
[2018-04-08] MEDS: SOD CHL 0.45%/POT CHL 20MEQ 1,000 ML IV SCH (08:03)
[2018-04-08] MEDS ORDERED: AMLODIPINE BESYLATE 5 MG TAB PEG SCH (09:00)
[2018-04-08] MEDS: MEGACE 400MG/ 10ML CUP PEG SCH (09:51)
[2018-04-08] MEDS: LISINOPRIL 20 MG TAB PEG SCH (09:51)
[2018-04-08] MEDS: TOLTERODINE TARTRATE 2 MG TAB PEG SCH ×2 (09:51→16:00)
[2018-04-08] MEDS: FUROSEMIDE INJ 10 MG/ML 2 ML VIAL IV SCH (09:51)
[2018-04-08] MEDS: CARVEDILOL 12.5 MG TAB PEG SCH ×2 (09:51→16:00)
[2018-04-08] MEDS: NYSTATIN 15 GM POWDER UD BTL TOP SCH ×2 (09:52→21:31)
[2018-04-08] MEDS: BALSAM PERU/CASTOR OIL 60 GM OINT...G. TP SCH ×2 (09:52→21:31)
[2018-04-08] MEDS: SENNA-S TABLET PEG SCH (09:52)
[2018-04-08] MEDS: HYDRALAZINE HCL 20 MG/ML VIAL IV PRN (12:05)
[2018-04-08] MEDS ORDERED: FUROSEMIDE INJ 10 MG/ML 2 ML VIAL IV ONE (14:00)
[2018-04-08] MEDS ORDERED: PAMIDRONATE DISODIUM 30 MG/VIAL IV ONE (14:00)
[2018-04-08] MEDS: SODIUM CHLORIDE 0.9% 1000ML 1,000 ML IV SCH (14:26)
[2018-04-08] MEDS ORDERED: PAMIDRONATE DISODIUM 30 MG in SODIUM CHLORIDE 0.9% 250ML 250 ML IV ONE (15:00)
--- NOTE | 2018-04-08 17:24 | Progress Note ---
DATE: April 08, 2018 CARDIOLOGY PROGRESS NOTE SUBJECTIVE: The patient is somnolent but does deny chest pain or shortness of breath. OBJECTIVE VITALS: Temperature 96.9 degrees, pulse 76, respiratory rate 18, blood pressure 192/81, oxygen saturation 98% on room air. GENERAL: Elderly woman, somnolent, in no acute distress. LUNGS: Clear to auscultation bilaterally. No wheezes or crackles. CARDIOVASCULAR: Normal rate. Regular rhythm. No murmur. Normal S1 and S2. ABDOMEN: Soft and nontender. EXTREMITIES: No edema. NEURO: Lethargic. CARDIAC MEDICATIONS 1. Carvedilol 25 mg p.o. b.i.d. 2. Lisinopril 40 mg p.o. daily. 3. Amlodipine 5 mg p.o. daily. 4. Furosemide 20 mg IV daily. 5. Clonidine patch. TELEMETRY: Normal sinus rhythm. IMPRESSION 1. Chest pain. 2. Hypertension, uncontrolled. 3. Paroxysmal atrial fibrillation, not on anticoagulation due to frequent falls. 4. 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 5. Escherichia coli and methicillin-resistant Staphylococcus aureus urinary tract infection. 6. Hyperlipidemia. 7. Diabetes mellitus. 8. Elevated right ventricular systolic pressure by echocardiogram. 9. Left renal mass. RECOMMENDATIONS: Given the patient's bedbound status, poor response to physical therapy, medication noncompliance, and comorbid conditions, recommend conservative medical therapy. Titrate up amlodipine given continued uncontrolled blood pressure. Antibiotics per primary service. Thank you for this consult. We will continue to follow. Job#: [id number]
[2018-04-08] MEDS ORDERED: VANCOMYCIN 500MG/NS 0.9% 100ML 100 ML IV ONE ×2 (20:00)
[2018-04-08] MEDS: KETOROLAC TROMETHAMINE 30 MG/ML VIAL IV PRN (21:35)
[2018-04-09 00:17] VITALS: BP 139/61
[2018-04-09 04:45] VITALS: BP 135/56
[2018-04-09] MEDS: SODIUM CHLORIDE 0.9% 1000ML 1,000 ML IV SCH ×2 (06:26→09:23)
[2018-04-09 07:57] VITALS: BP 141/63
[2018-04-09] MEDS ORDERED: AMLODIPINE BESYLATE 5 MG TAB PEG SCH (09:00)
[2018-04-09] MEDS ORDERED: AMLODIPINE BESYLATE 10 MG TAB PEG SCH (09:00)
[2018-04-09] MEDS: FUROSEMIDE INJ 10 MG/ML 2 ML VIAL IV SCH (09:22)
[2018-04-09] MEDS: LISINOPRIL 20 MG TAB PEG SCH (09:23)
[2018-04-09] MEDS: SENNA-S TABLET PEG SCH (09:23)
[2018-04-09] MEDS: BALSAM PERU/CASTOR OIL 60 GM OINT...G. TP SCH (09:23)
[2018-04-09] MEDS: MEGACE 400MG/ 10ML CUP PEG SCH (09:23)
[2018-04-09] MEDS: CARVEDILOL 12.5 MG TAB PEG SCH (09:23)
[2018-04-09] MEDS: TOLTERODINE TARTRATE 2 MG TAB PEG SCH (09:23)
[2018-04-09] MEDS: NYSTATIN 15 GM POWDER UD BTL TOP SCH (09:23)
[2018-04-09 09:56] VITALS: BP 141/63
[2018-04-09] MEDS: KETOROLAC TROMETHAMINE 30 MG/ML VIAL IV PRN (10:19)
--- NOTE | 2018-04-09 10:35 | Progress Note ---
DATE: April 09, 2018 CARDIOLOGY PROGRESS NOTE SUBJECTIVE: The patient is quite lethargic but does deny chest pain or shortness of breath. OBJECTIVE VITALS: Temperature 98.9 degrees, pulse 76, respiratory rate 18, blood pressure 141/63, oxygen saturation 97% on nasal cannula. GENERAL: Elderly woman, lethargic, in no acute distress, chronically ill appearing. LUNGS: Clear to auscultation bilaterally. No wheezes or crackles. CARDIOVASCULAR: Normal rate. Regular rhythm. No murmur. Normal S1 and S2. ABDOMEN: Soft and nontender. EXTREMITIES: No edema. NEURO: Lethargic. CARDIAC MEDICATIONS 1. Amlodipine 10 mg p.o. daily. 2. Lisinopril 40 mg p.o. daily. 3. Carvedilol 25 mg p.o. b.i.d. 4. Furosemide 20 mg IV daily. 5. Clonidine patch. LABS: None today. TELEMETRY: Normal sinus rhythm. IMPRESSION 1. Chest pain. 2. Hypertension, improved. 3. Paroxysmal atrial fibrillation, not on anticoagulation due to frequent falls. 4. 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 5. Escherichia coli and methicillin-resistant Staphylococcus aureus urinary tract infection. 6. Hyperlipidemia. 7. Diabetes mellitus. 8. Elevated right ventricular systolic pressure by echocardiogram. 9. Left renal mass. RECOMMENDATIONS: Given the patient's bedbound status, poor response to physical therapy, and comorbid conditions, recommend conservative medical therapy. Continue current cardiac medications. The patient's blood pressure is now adequate for age. Antibiotics per primary service. Thank you for this consult. We will continue to follow. Job#: [id number]
[2018-04-09 11:49] VITALS: BP 125/62
== END 2018-04-09 14:00 | disposition hospice, home (50) | DRG 308 ==
LOC: ER 15:41 → ERHOLD 19:05 → MED/SURG3 22:48
PROVIDERS: ADMIT Internal Medicine; ATTEND Internal Medicine
PROC: 0DB78ZX Excision of Stomach, Pylorus, Via Natural or Artificial Opening Endoscopic, Diagnostic (ICD-10-PCS; principal; 2018-03-30)
PROC: 0DB88ZX Excision of Small Intestine, Via Natural or Artificial Opening Endoscopic, Diagnostic (ICD-10-PCS; 2018-03-30)
PROC: 0DH68UZ Insertion of Feeding Device into Stomach, Via Natural or Artificial Opening Endoscopic (ICD-10-PCS; 2018-03-30)
DX: I48.0 Paroxysmal atrial fibrillation (principal); G93.41 Metabolic encephalopathy; N39.0 Urinary tract infection, site not specified; I69.354 Hemiplegia and hemiparesis following cerebral infarction affecting left non-dominant side; F01.51 Vascular dementia, unspecified severity, with behavioral disturbance; C64.2 Malignant neoplasm of left kidney, except renal pelvis; I50.1 Left ventricular failure, unspecified; I50.32 Chronic diastolic (congestive) heart failure; E21.3 Hyperparathyroidism, unspecified; R13.10 Dysphagia, unspecified; Z74.01 Bed confinement status; K29.70 Gastritis, unspecified, without bleeding; F01.50 Vascular dementia, unspecified severity, without behavioral disturbance, psychotic disturbance, mood disturbance, and anxiety; Z91.81 History of falling; M51.36 Other intervertebral disc degeneration, lumbar region; I27.20 Pulmonary hypertension, unspecified; B96.20 Unspecified Escherichia coli [E. coli] as the cause of diseases classified elsewhere; B95.62 Methicillin resistant Staphylococcus aureus infection as the cause of diseases classified elsewhere; Z91.14 Patient's other noncompliance with medication regimen; R32 Unspecified urinary incontinence; I69.319 Unspecified symptoms and signs involving cognitive functions following cerebral infarction; I69.391 Dysphagia following cerebral infarction; I11.0 Hypertensive heart disease with heart failure; Z66 Do not resuscitate; E78.5 Hyperlipidemia, unspecified
CPT/HCPCS: 36415; 71045; 74230; 76770; 77075; 80048; 80053; 80061; 80202; 81001; 82164; 82306; 82330; 82550; 82553; 82607; 82746; 83036; 83519; 83540; 83735; 83880; 83970; 84100; 84165; 84166; 84439; 84443; 84466; 84484; 85025; 85610; 86592; 87040; 87086; 87186; 93005; 96361; 99284; J0360; J0692; J1885; J1940; J2430; J2765; J3370; J7030; J7040; J7050